=== PATIENT | female | born 1960 | race Caucasian/White ===

== ENCOUNTER 2018-01-01 23:03 | Inpatient (IN) | payer BC ==
[2018-01-01 23:51] LABS: Absolute Lymphocytes (CBC) 1.1 K/uL (0.7-4.9); Absolute Monocytes 0.7 K/uL (0.1-1.3); Absolute Neutrophil 8.2 K/uL (1.8-8.0); Basophils % 0.7 % (0-1.3); Eosinophils % 0.4 % (0-4.4); Hematocrit 43.1 % (36.0-45.0); MCH 27.6 pg (27.0-35.0); MCV 83.1 fL (80-100); MPV 9.1 fL (7.6-11.3); Monocytes % 7.3 % (3.3-12.3); RBC Red Blood Cell Count 5.19 M/uL (3.86-4.86)
[2018-01-01 23:57] LABS: Bicarbonate 24 mEq/L (21-31); Glucose Level 143 mg/dL (65-120); Lipase 14 U/L (22-51); Potassium 4.4 mEq/L (3.6-5.0); Sodium Level 135 mEq/L (135-145)
[2018-01-02] MEDS ORDERED: ONDANSETRON 4 MG/2 ML VIAL ONE (00:02)
[2018-01-02] MEDS ORDERED: MORPHINE 10 MG/ML VIAL ONE (00:02)
[2018-01-02] MEDS ORDERED: NA CHLORIDE 0.9% 1,000 ML ONE ×2 (00:02→02:59)
[2018-01-02 00:04] LABS: ALT/SGPT 25 IU/L (10-60); AST/SGOT 26 IU/L (10-42); Albumin 4.3 g/dL (3.2-5.5); Alkaline Phosphatase 99 IU/L (42-121); BUN Blood Urea Nitrogen 24 mg/dL (6-20); Bilirubin Direct 0.2 mg/dL (0-0.2); Bilirubin Total 0.8 mg/dL (0.3-1.2); Glomerular Filtration Rate > 90 mL/min (=/>90); Protein, Total 7.7 g/dL (6.0-8.3)
--- NOTE | 2018-01-02 01:57 | ER ---
Nurse's Notes [facility] Name: Svetlana Orozco Age: 57 yrs Sex: Female : 1960 Arrival Date: 01/01/2018 Time: 23:04 Bed 18 Private MD: Diagnosis: Other intestinal obstruction-Small bowel obstruction Presentation: 01/01 23:49 Presenting complaint: EMS states: I DRANK AT THE [place] LAST NIGHT AND I THINK I'VE bp GOT DIVERTICULITIS. Transition of care: patient was not received from another setting of care. Onset of symptoms was January 01, 2018 at 12:00. Care prior to arrival: None. 23:49 Method Of Arrival: Ambulatory bp 23:49 Acuity: BHARAT 3 bp Triage Assessment: 23:50 General: Appears distressed, uncomfortable, obese, Behavior is cooperative, appropriate bp for age, agitated, anxious. Pain: Complains of pain in abdomen Pain currently is 10 out of 10 on a pain scale. EENT: No deficits noted. Neuro: Level of Consciousness is awake, alert, obeys commands, Oriented to person, place, time, situation, Appropriate for age. Cardiovascular: No deficits noted. Respiratory: Airway is patent Respiratory effort is even, unlabored, Respiratory pattern is regular, symmetrical. GI: Abdomen is obese, Abd is soft X 4 quads Abdomen is tender to palpation X 4 quads. : No signs and/or symptoms were reported regarding the genitourinary system. Derm: No deficits noted. Musculoskeletal: Circulation, motion, and sensation intact. Range of motion: intact in all extremities. Historical: - Allergies: 23:50 No Known Allergies; bp - Home Meds: 23:50 Lisinopril Oral [Active]; Detrol Oral [Active]; bp - PMHx: 23:50 Hypertension; bp - PSHx: 23:50 Gastric Bypass; bp - Immunization history:: Adult Immunizations up to date. - Social history:: Smoking status: Patient/guardian denies using tobacco. Screenin:53 Abuse screen: Denies threats or abuse. Denies injuries from another. Nutritional bp screening: No deficits noted. Tuberculosis screening: No symptoms or risk factors identified. Fall Risk None identified. Assessment: 23:53 General: SEE TRIAGE NOTE. bp 01/02 00:00 GI: Bowel sounds present X 4 quads. bp 00:25 Reassessment: PT TO CT WITH DEAL ARCHITECT. bp 00:50 Reassessment: PT RETURNED FROM CT, RESULTS PENDING. bp 02:02 Reassessment: PER PROVIDER, PT HAS CLOSED LOOP SBO, C/S AND ADMIT PENDING. NGT DEFERRED bp BY SURGERY C/S DUE TO H/O GASTRIC BYPASS. 02:24 Reassessment: ADMIT IN PROCESS. BED ASSIGNED, AWAITING ADMIT MD ORDERS. bp 03:45 Reassessment: PT CRISTIANO WITH DANIELLA LINO. bp Vital Signs: 01/01 23:50 BP 175 / 95; Pulse 81; Resp 24; Temp 97.6; Pulse Ox 97% ; Weight 158.76 kg (R); bp 01/02 00:23 BP 158 / 80; Pulse 79; Resp 18; Pulse Ox 93% on R/A; bp 02:03 BP 149 / 82; Pulse 77; Resp 16; Pulse Ox 100% ; bp 03:45 BP 136 / 78; Pulse 75; Resp 16; Pulse Ox 97% ; bp ED Course: 01/01 23:04 Patient arrived in ED. ds1 23:19 Chaparro Ley NP is PHCP. pm1 23:19 Tung Villalobos MD is Attending Physician. pm1 23:27 Kwaku Duran, ZOIE is Primary Nurse. bp 23:49 Triage completed. bp 23:50 Arm band placed on. bp 23:53 Patient has correct armband on for positive identification. Bed in low position. Call bp light in reach. Side rails up X2. Adult w/ patient. 23:53 Inserted saline lock: 22 gauge in right antecubital area, using aseptic technique. bp Blood collected. 01/02 01:50 Luis Jovel MD is Hospitalizing Provider. pm1 02:04 No provider procedures requiring assistance completed. Patient admitted, IV remains in bp place. 02:05 Lipase Sent. bp 02:05 Hepatic Function Sent. bp 02:05 CBC with Diff Sent. bp 02:05 Basic Metabolic Panel Sent. bp Administered Medications: 01/01 23:50 Drug: NS 0.9% 1000 ml Route: IV; Rate: 1000 ml; Site: right antecubital; bp 01/02 02:05 Follow up: IV Status: Completed infusion bp 01/01 23:50 Drug: morphine 4 mg Route: IVP; Site: right antecubital; bp 01/02 00:25 Follow up: Response: Pain is decreased bp 01/01 23:50 Drug: Zofran 4 mg Route: IVP; Site: right antecubital; bp 01/02 00:24 Follow up: Response: Pain is decreased bp 02:22 Drug: NS 0.9% 1000 ml Route: IV; Rate: 100 ml/hr; Site: right antecubital; bp 02:22 Follow up: IV Status: Infusion continued upon admission bp Outcome: 01:57 Decision to Hospitalize by Provider. pm1 03:46 Admitted to Med/surg accompanied by nurse, via stretcher, with chart. bp 03:46 Condition: stable 03:46 Instructed on the need for admit. 03:47 Patient left the ED. bp Signatures: Shelly Ramey ds1 Chaparro Ley, SPECIAL EVENTS COORDINATOR SPECIAL EVENTS COORDINATOR pm1 Kwaku Duran, RN RN bp
--- NOTE | 2018-01-02 01:58 | EDPHYS ---
Physician Documentation [facility] Name: Svetlana Orozco Age: 57 yrs Sex: Female : 1960 Arrival Date: 01/01/2018 Time: 23:04 Bed 18 Private MD: ED Physician Tung Villalobos HPI: 01/02 00:30 This 57 yrs old Female presents to ER via Ambulatory with complaints of pm1 Abdominal Pain. 00:30 The patient presents with abdominal pain in the epigastric area. Onset: The pm1 symptoms/episode began/occurred today. The symptoms do not radiate. Associated signs and symptoms: Pertinent positives: nausea and vomiting, Pertinent negatives: chest pain, diarrhea, dysuria, fever, headache, shortness of breath. The symptoms are described as crampy, sharp. Modifying factors: The symptoms are alleviated by nothing, the symptoms are aggravated by food. Severity of pain: in the emergency department the pain is actually worse. The patient has not experienced similar symptoms in the past. Patient with history of gastric bypass 18 years ago in [place]. Patient with vomiting after eating and drinking. Patient reports normal bowel movement this AM. Historical: - Allergies: 01/01 23:50 No Known Allergies; bp - Home Meds: 23:50 Lisinopril Oral [Active]; Detrol Oral [Active]; bp - PMHx: 23:50 Hypertension; bp - PSHx: 23:50 Gastric Bypass; bp - Immunization history:: Adult Immunizations up to date. - Social history:: Smoking status: Patient/guardian denies using tobacco. ROS: 01/02 00:30 Constitutional: Negative for fever, chills, and weight loss, Eyes: Negative for injury, pm1 pain, redness, and discharge, ENT: Negative for injury, pain, and discharge, Neck: Negative for injury, pain, and swelling, Cardiovascular: Negative for chest pain, palpitations, and edema, Respiratory: Negative for shortness of breath, cough, wheezing, and pleuritic chest pain. Back: Negative for injury and pain, : Negative for injury, bleeding, discharge, and swelling, MS/Extremity: Negative for injury and deformity, Skin: Negative for injury, rash, and discoloration, Neuro: Negative for headache, weakness, numbness, tingling, and seizure. Abdomen/GI: Positive for abdominal pain, nausea and vomiting, of the epigastric area, Negative for diarrhea, hematemesis. Exam: 00:30 Constitutional: This is a well developed, well nourished patient who is awake, alert, pm1 and in no acute distress. Head/Face: Normocephalic, atraumatic. Eyes: Pupils equal round and reactive to light, extra-ocular motions intact. Lids and lashes normal. Conjunctiva and sclera are non-icteric and not injected. Cornea within normal limits. Periorbital areas with no swelling, redness, or edema. ENT: Nares patent. No nasal discharge, no septal abnormalities noted. Tympanic membranes are normal and external auditory canals are clear. Oropharynx with no redness, swelling, or masses, exudates, or evidence of obstruction, uvula midline. Mucous membranes moist. Neck: Trachea midline, no thyromegaly or masses palpated, and no cervical lymphadenopathy. Supple, full range of motion without nuchal rigidity, or vertebral point tenderness. No Meningismus. Chest/axilla: Normal chest wall appearance and motion. Nontender with no deformity. No lesions are appreciated. Cardiovascular: Regular rate and rhythm with a normal S1 and S2. No gallops, murmurs, or rubs. No pulse deficits. Respiratory: Lungs have equal breath sounds bilaterally, clear to auscultation and percussion. No rales, rhonchi or wheezes noted. No increased work of breathing, no retractions or nasal flaring. 00:30 Back: No spinal tenderness. No costovertebral tenderness. Full range of motion. Skin: Warm, dry with normal turgor. Normal color with no rashes, no lesions, and no evidence of cellulitis. MS/ Extremity: Pulses equal, no cyanosis. Neurovascular intact. Full, normal range of motion. 00:30 Abdomen/GI: Inspection: obese Bowel sounds: normal, Palpation: soft, moderate abdominal tenderness, in the epigastric area, mass, is not appreciated, rebound tenderness, is not appreciated. 00:30 Neuro: Orientation: is normal, Motor: is normal, moves all fours, Sensation: is normal, no obvious gross deficits. Vital Signs: 01/01 23:50 BP 175 / 95; Pulse 81; Resp 24; Temp 97.6; Pulse Ox 97% ; Weight 158.76 kg (R); bp 01/02 00:23 BP 158 / 80; Pulse 79; Resp 18; Pulse Ox 93% on R/A; bp 02:03 BP 149 / 82; Pulse 77; Resp 16; Pulse Ox 100% ; bp 03:45 BP 136 / 78; Pulse 75; Resp 16; Pulse Ox 97% ; bp MDM: 01/01 23:20 Patient medically screened. pm1 01/02 01:48 Data reviewed: vital signs. Data interpreted: Pulse oximetry: on room air is 97 %. pm1 Interpretation: normal. Counseling: I had a detailed discussion with the patient and/or guardian regarding: the historical points, exam findings, and any diagnostic results supporting the discharge/admit diagnosis, lab results, radiology results, the need for further work-up and treatment in the hospital. 01:50 Physician consultation: Gulshan Rome MD was contacted at 01:40, regarding consult, pm1 patient's condition, and will see patient tomorrow. 02:19 ED course: Patient just recalled that she had Dr. Schroeder as a general surgeon in the pm1 past for a wound debridement and would like to have him as her surgeon if possible. Informed the patient that he is not caponizer but will attempt to contact him. Informed the patient that I have already discussed the case with Dr. Rome and he is willing to see her tomorrow morning. I left message for Dr. Schroeder. Patient is fine with either surgeon treating her. 02:46 Physician consultation: Luis Jovel MD was contacted at 02:48, regarding admission, pm1 patient's condition, and will see patient. ED course: No call back from Dr. Schroeder. Dr. Jovel discussed case with Dr. Rome and he will evaluate the patient in the morning.. 01/01 23:35 Order name: Basic Metabolic Panel pm1 01/01 23:35 Order name: CBC with Diff pm1 01/01 23:35 Order name: Hepatic Function pm1 01/01 23:35 Order name: Lipase pm1 01/01 23:58 Order name: Basic Metabolic Panel; Complete Time: 00:16 EDMS 01/01 23:58 Order name: Lipase; Complete Time: 00:16 EDMS 01/01 23:35 Order name: CT Abd/Pelvis - W/Contrast: IV contrast only pm1 01/02 00:04 Order name: Liver (Hepatic) Function; Complete Time: 00:16 EDMS 01/02 00:17 Order name: CBC with Automated Diff; Complete Time: 00:33 EDMS 01/02 02:46 Order name: Urine --Ancillary (enter results) rg2 01/01 23:35 Order name: Urine Test (obtain specimen); Complete Time: 02:37 pm1 01/01 23:35 Order name: IV Saline Lock; Complete Time: 23:38 pm1 01/01 23:35 Order name: Labs collected and sent; Complete Time: 23:48 pm1 01/01 23:35 Order name: Urine Dipstick-Ancillary (obtain specimen); Complete Time: 02:37 pm1 01/02 02:14 Order name: NPO; Complete Time: 02:22 pm1 Administered Medications: 01/01 23:50 Drug: NS 0.9% 1000 ml Route: IV; Rate: 1000 ml; Site: right antecubital; bp 01/02 02:05 Follow up: IV Status: Completed infusion bp 01/01 23:50 Drug: morphine 4 mg Route: IVP; Site: right antecubital; bp 01/02 00:25 Follow up: Response: Pain is decreased bp 01/01 23:50 Drug: Zofran 4 mg Route: IVP; Site: right antecubital; bp 01/02 00:24 Follow up: Response: Pain is decreased bp 02:22 Drug: NS 0.9% 1000 ml Route: IV; Rate: 100 ml/hr; Site: right antecubital; bp 02:22 Follow up: IV Status: Infusion continued upon admission bp Disposition: 01/02/18 01:57 Hospitalization ordered by Luis Jovel for Inpatient Admission. Preliminary diagnosis is Other intestinal obstruction - Small bowel obstruction. - Bed requested for Telemetry/MedSurg (Inpatient). - Status is Inpatient Admission. bp - Condition is Stable. - Problem is new. - Symptoms have improved. UTI on Admission? No Addendum: 01/06/2018 06:23 Co-signature as Attending Physician, Tung Villalobos MD. g s Signatures: Dispatcher [employer] EDMS Svetlana Tejada RN RN bb Chaparro Ley, INTERPRETATIVE DANCER INTERPRETATIVE DANCER pm1 Tung Villalobos MD MD Kwaku Duran RN RN bp
[2018-01-02] MEDS: NA CHLORIDE 0.9% 1,000 ML IV SCH ×3 (03:00→19:51)
[2018-01-02 03:50] LABS: Urine Specific Gravity 1.015 (1.005-1.030)
[2018-01-02] MEDS: MORPHINE 4 MG/ML SYR IV PRN ×4 (04:17→19:52)
[2018-01-02] MEDS: Levofloxacin500mg IV 500 MG/100 ML BAG IV SCH (04:17)
[2018-01-02] MEDS: ONDANSETRON 4 MG/2 ML VIAL IV PRN ×4 (04:21→19:52)
--- NOTE | 2018-01-02 07:44 | P.HP ---
Certification for Inpatient Patient admitted to: Inpatient With expected LOS: >2 Midnights Patient will require the following post-hospital care: None Practitioner: I am a practitioner with admitting privileges, knowledge of patient current condition, hospital course, and medical plan of care. Services: Services provided to patient in accordance with Admission requirements found in Title 42 Section 412.3 of the Code of Federal Regulations Patient History Date of Service: 01/02/18 Reason for admission: Small-bowel obstruction History of Present Illness: Patient is a 57-year-old female with a history of a gastric bypass surgery. This was done 18 years ago. I am not sure exactly how the bypass was performed but we will try to get records. Patient was doing well up until this evening when she steadily started having abdominal pain. She had an intractable nausea and vomiting. She has not had any flatus since that time. CT scan per ER physician were showed a significant small-bowel obstruction. At this time patient be admitted to the hospital with surgical consultation. I did speak with General surgery and they will assess the patient in the morning. Allergies No Known Allergies Allergy (Verified 07/21/17 13:13) Home Medications: Fan Cit/D3/K/Mag Ox/Stron/Bor [Theracal Rapid Repletion Tab] 1 cap PO DAILY Cyanocobalamin [Vitamin B-12*] 1,000 mg IM DIRECTED 01/02/18 Lisinopril/Hydrochlorothiazide [Lisinopril-Hctz 10-12.5 mg Tab] 20 mg PO DAILY 01/02/18 Oxybutynin Chloride [Ditropan*] 5 mg PO BID 01/02/18 - Past Medical/Surgical History Has patient received pneumonia vaccine in the past: Yes Diabetic: No -: Hypertension -: Obesity -: Total knee replavement-bilateral -: Gastric bypass sx -: Dedridement on rt lag -: neck surgery - Family History Father Medical History: Heart disease, Lung disease, GI disease, Diabetes, Kidney disease Mother Medical History: GI disease, Other (see notes) Notes: Hernia - Social History Smoking Status: Former smoker Alcohol use: Yes CD- Drugs: No Caffeine use: Yes Place of Residence: Home Review of Systems 10-point ROS is otherwise unremarkable Physical Examination - Vital Signs Temperature: 98.4 F Blood Pressure: 145/83 Pulse: 81 Respirations: 20 Pulse Ox (%): 96 - Physical Exam General: Alert, In no apparent distress, Oriented x3 HEENT: Atraumatic, PERRLA, Mucous membr. moist/pink, EOMI, Sclerae nonicteric Neck: Supple, 2+ carotid pulse no bruit, No LAD, Without JVD or thyroid abnormality Respiratory: Clear to auscultation bilaterally, Normal air movement Cardiovascular: Regular rate/rhythm, Normal S1 S2, No murmurs Gastrointestinal: Normal bowel sounds, Soft and benign, Non-distended, No tenderness Musculoskeletal: No clubbing, No swelling, No tenderness Integumentary: No rashes Neurological: Normal gait, Normal speech, Normal strength at 5/5 x4 extr, Normal tone, Sensation intact, Cranial nerves 3-12 intact, Normal affect Lymphatics: No axilla or inguinal lymphadenopathy - Studies Laboratory Data (last 24 hrs) 01/01/18 23:40: WBC 10.1, Hgb 14.3, Hct 43.1, Plt Count 262 01/01/18 23:40: Sodium 135, Potassium 4.4, BUN 24 H, Creatinine 0.63, Glucose 143 H, Total Bilirubin 0.8, AST 26, ALT 25, Alkaline Phosphatase 99, Lipase 14 L Assessment & Plan - Problems (Diagnosis) (1) Small bowel obstruction Current Visit: Yes Status: Acute (2) History of gastric bypass Current Visit: Yes Status: Acute (3) Morbid obesity Current Visit: Yes Status: Acute (4) Hypertension Current Visit: Yes Status: Acute (5) Intractable nausea and vomiting Current Visit: Yes Status: Acute - Plan Plan: 1. IV hydration 2. Pain control 3. General surgery consultation 4. IV antibiotics 5. Monitor labs and electrolytes closely 6. GI and DVT prophylaxis Discharge Plan: Home - Advance Directives Does patient have a Living Will: No Does patient have a Durable POA for Healthcare: No - Code Status/Comfort Care Code Status Assessed: Yes Code Status: Full Code Critical Care: No Time Spent Managing PTS Care (In Minutes): 50
--- NOTE | 2018-01-02 08:26 | RAD REPORT ---
EXAM DESCRIPTION: CTAbdomen Pelvis W Contrast - 01/02/2018 12:49 am CLINICAL HISTORY: Abdominal pain. COMPARISON: None. TECHNIQUE: Biphasic CT imaging of the abdomen and pelvis was performed with 100 ml non-ionic IV cont rast. All CT scans are performed using dose optimization technique as appropriate and may include automated exposure control or mA/KV adjustment according to patient size. FINDINGS: The lung bases are clear.Postsurgical changes are present the gastroesophageal junction. The liver contains a 10 mm low-density lesion in the right lobe superiorly, likely a cyst. No aggress lisa liver lesion or biliary dilatation. The spleen, pancreas, adrenal glands and kidneys are within n ormal limits. Multiple dilated loops of small intestine are present in the central abdomen. Postsurgical clips are present in the region. No free intraperitoneal air, free fluid or localized abscess. The appendix is normal. No evidence of significant lymphadenopathy. No suspicious bony findings. IMPRESSION: Moderate to severe mechanical small bowel obstruction is present. The configuration of t he obstructed loops raises suspicion for a closed loop obstruction.
[2018-01-02] MEDS: METRONIDAZOLE 500mg IVPB 500 MG/100 ML BAG IV SCH ×2 (09:00→17:13)
--- NOTE | 2018-01-02 09:15 | RAD REPORT ---
EXAM DESCRIPTION: RAD - Abdomen W Erect - 01/02/2018 8:49 am CLINICAL HISTORY: Small bowel obstruction COMPARISON: Recent CT study. FINDINGS: Significant distention of central abdominal bowel loops is present compatible with a moder ate to severe mechanical small bowel obstruction. Surgical clips are present in the mid abdomen. Contrast is present in the urinary bladder. No pneumoperitoneum seen. IMPRESSION: [id number] mechanical small-bowel obstruction in the central mid abdomen.
--- NOTE | 2018-01-02 20:58 | CON ---
Date of Consultation: 01/02/2018 Diagnosis: bowel obstruction. History Of Present Illness: This is the case of a 57-year-old patient, morbidly obese with a history of gastric bypass about 18 years ago. She said that yesterday at 6 o'clock in the afternoon, she basilio s had a with some other meal and then she had felt nauseous 2 hours later. Since she was not improving, she decided to come this morning to the ER, found to have a possible bowel obstruction and the patient was admitted to the hospital with the medical service. She does not remember any me yuliet problems. She is saying that last August, which was about 4 months ago, she had an upper endos copy and colonoscopy done by Dr. Hawthorne, and she stated that was with no major finding. Before that , she had some other meal that she was starting to get already sick, although she gillette s not remember the details of it. The patient denies any dysuria, hematuria, hematochezia, or melena . Denies any recent traveling out of the country. Denies any family member sick at home. Review of Systems: Constitutional: Denies any fever, any chills. Gastrointestinal: The patient states some nausea and vomiting, although she states she feels a lot better than yesterday. No melena and no hematochezia. Respiratory: Denies any shortness of breath. Genitourinary: Denies any dysuria, hematuria. Physical Examination: General: The patient is awake and alert. HEENT: Pupils are equal and reactive, anicteric. Neck: Supple. Chest: Bilateral breath sounds. Abdomen: Softly distended. Epigastric tenderness. No guarding or rebound. Extremities: Good capillary refill. Rectal: Deferred. Breast: Deferred. Pelvic: Deferred. Laboratory Data: Blood work shows WBC count of 10.1 with hemoglobin of 14.3 and platelets of 262. P otassium is 4.0. Creatinine is 0.63. Sodium is 135, chloride is 199 , creatinine 0.63. Imaging: CAT scan of abdomen and pelvis interpreted by Dr. Grullon as bowel obstruction present, judgin g by multiple dilated loops and small bowel in the central abdomen. Many surgical clips are availabl e in that area. No lymphadenopathy. No pneumatosis. Assessment: A 57-year-old patient, who developed nausea and vomiting after eating. The patient feel s a lot better right now. She is passing flatus. She has a gastric bypass. It was Marla-en-Y, altho ugh it was done about 18 years ago. She is able to gain some weight back. She has not been examined for a long time other than the GI endoscopies done recently. At this moment, we see some dilated lo ops, hard to differentiate in that scan due to the history of gastric bypass. She has no peritonitis . Abdomen has no rebound tenderness. Plan: So, we going to keep her on bowel rest, IV hydration. We are going to obtain a small bowel se yris to confirm the diagnosis if she had bowel obstructions since she was explained the options of la parotomy, possible bowel resection, possible ostomy with benefits and risk, including but not limited to, infection, bleeding, damage to adjacent structures, anesthesia complication, recurrence, OR, and even . She also understands this may not relieve any symptoms. She might need more than one s urgical intervention. Obviously, she preferred to try the conservative treatment first as long as cl inically she is stable in this case. There is no pneumoperitoneum. No peritonitis at this time. So , we are going to try to continue this for the next 24 hours and then do the x-ray since the patient just had a CAT scan done recently. GRETA Voice ID: [id number] Report ID: [id number]
[2018-01-03] MEDS: METRONIDAZOLE 500mg IVPB 500 MG/100 ML BAG IV SCH ×3 (00:58→18:05)
[2018-01-03] MEDS: ONDANSETRON 4 MG/2 ML VIAL IV PRN ×2 (01:11→10:18)
[2018-01-03] MEDS: MORPHINE 4 MG/ML SYR IV PRN (01:11)
[2018-01-03] MEDS: Levofloxacin500mg IV 500 MG/100 ML BAG IV SCH (03:41)
[2018-01-03] MEDS ORDERED: SODIUM CHLORIDE 0.9% 10ML INJ IV PRN (07:00)
[2018-01-03] MEDS ORDERED: HYDRALAZINE HCL 20 MG/ML VIAL IV PRN (07:00)
[2018-01-03 08:05] LABS: BUN Blood Urea Nitrogen 10 mg/dL (6-20); Bicarbonate 27 mEq/L (21-31); Glomerular Filtration Rate > 90 mL/min (=/>90); Glucose Level 137 mg/dL (65-120); Magnesium 1.7 mg/dL (1.8-2.5); Potassium 4.3 mEq/L (3.6-5.0); Sodium Level 131 mEq/L (135-145)
[2018-01-03 08:07] LABS: Absolute Lymphocytes (CBC) 0.8 K/uL (0.7-4.9); Absolute Monocytes 0.6 K/uL (0.1-1.3); Absolute Neutrophil 7.8 K/uL (1.8-8.0); Basophils % 0.1 % (0-1.3); Eosinophils % 0.3 % (0-4.4); Hematocrit 41.2 % (36.0-45.0); Lymphocytes % 8.4 % (15.3-44.8); MCH 27.7 pg (27.0-35.0); MCV 83.4 fL (80-100); MPV 9.3 fL (7.6-11.3); Monocytes % 6.4 % (3.3-12.3); RBC Red Blood Cell Count 4.94 M/uL (3.86-4.86)
--- NOTE | 2018-01-03 09:32 | RAD REPORT ---
EXAM DESCRIPTION: RAD - Abdomen 1 View (KUB) - 01/03/2018 9:21 am CLINICAL HISTORY: Small bowel obstruction COMPARISON: KUB January 02, CT study January 02 FINDINGS: Multiple dilated proximal small bowel loops are again noted. No free air or pneumatosis basilio ve developed. No clear improvement in this small bowel obstruction pattern since prior imaging. Colon remains mostly decompressed. There is a small amount of air scattered in the nondilated colon. No sloan spicious calcifications. IMPRESSION: No measurable improvement in the proximal small bowel obstruction pattern. No free air or pneumatosis have developed.
[2018-01-03] MEDS: PANTOPRAZOLE 40 MG INJ IVP SCH (10:12)
[2018-01-03] MEDS: NA CHLORIDE 0.9% 1,000 ML IV SCH ×2 (10:12→18:06)
[2018-01-03] MEDS ORDERED: MAGNESIUM SULFATE 1 gm IVPB 1 GM/100 ML BAG IV ONE (12:17)
--- NOTE | 2018-01-03 16:21 | P.PN ---
Subjective Date of Service: 01/03/18 Chief Complaint: Small-bowel obstruction Subjective: Other (Slight improvement in pain. No significant nausea or vomiting noted.) Physical Examination - Vital Signs Temperature: 98.6 F Blood Pressure: 114/70 Pulse: 85 Respirations: 18 Pulse Ox (%): 18 - Physical Exam General: Alert, In no apparent distress, Oriented x3, Cooperative HEENT: Atraumatic Neck: Supple Respiratory: Clear to auscultation bilaterally, Normal air movement Cardiovascular: Normal pulses, Regular rate/rhythm Gastrointestinal: Hypoactive, Non-distended, No masses, No rebound, No guarding , Tenderness (acid tender to the abdomen.) Musculoskeletal: No erythema, No tenderness, No warmth Integumentary: No tenderness/swelling, No erythema, No warmth, No cyanosis Neurological: Normal speech, Normal strength at 5/5 x4 extr, Normal tone, Normal affect Lymphatics: No axilla or inguinal lymphadenopathy - Studies Medications List Reviewed: Yes Assessment & Plan - Problems (Diagnosis) (1) History of gastric bypass Onset Date: 01/02/18 Current Visit: Yes Status: Chronic Plan: Patient with history of gastric bypass. X-ray shows no significant change in small bowel obstruction. Will discuss with surgery. Will need to consider NG tube (2) Hypertension Onset Date: 01/02/18 Current Visit: Yes Status: Chronic Plan: Medication will be provided as needed. Qualifiers: Hypertension type: essential hypertension Qualified Code(s): I10 - Essential (primary) hypertension (3) Intractable nausea and vomiting Onset Date: 01/02/18 Current Visit: Yes Status: Acute Plan: Will continue monitor closely. Will discuss with surgery. Qualifiers: Vomiting type: unspecified Qualified Code(s): R11.2 - Nausea with vomiting , unspecified (4) Morbid obesity Onset Date: 01/02/18 Current Visit: Yes Status: Chronic Plan: Patient with history of gastric bypass. Will continue above plan of care. (5) Small bowel obstruction Onset Date: 01/02/18 Current Visit: Yes Status: Acute Plan: Small-bowel obstruction noted. X-ray shows no improvement. Will discuss with surgery. Patient may require intervention. Discharge Plan: Home Plan to discharge in: Greater than 2 days Time Spent Managing Pts Care (In Minutes): 55
[2018-01-03] MEDS: ENOXAPARIN 40 MG/0.4 ML SQ SCH (18:05)
[2018-01-03] MEDS: ACETAMINOPHEN 500 MG TAB PO PRN (20:13)
[2018-01-03 21:18] LABS: Urine Appearance CLEAR; Urine Blood TRACE (NEG); Urine Color DK YELLOW; Urine Glucose NEGATIVE (NEG); Urine Protein NEGATIVE (NEG); Urine Specific Gravity 1.025 (1.005-1.030); Urine pH 5.5 (5.0-7.0)
[2018-01-03 21:28] LABS: Urine Bilirubin NEGATIVE (NEG); Urine Microscopic Reflex ORDER UMIC
[2018-01-03 22:33] LABS: Absolute Lymphocytes (CBC) 0.7 K/uL (0.7-4.9); Absolute Monocytes 0.6 K/uL (0.1-1.3); Absolute Neutrophil 7.4 K/uL (1.8-8.0); Basophils % 0.3 % (0-1.3); Eosinophils % 0.2 % (0-4.4); MCH 27.8 pg (27.0-35.0); MCV 82.9 fL (80-100); MPV 9.1 fL (7.6-11.3); Monocytes % 6.6 % (3.3-12.3)
[2018-01-03 22:43] LABS: Urine Bacteria 20-50 /HPF (<20); Urine Culture Reflex Order REFLEXED; Urine Mucus 2+ /HPF (NONE SEEN); Urine RBC <5 /HPF (NONE SEEN)
[2018-01-03 22:53] LABS: ALT/SGPT 21 IU/L (10-60); AST/SGOT 21 IU/L (10-42); Albumin 3.3 g/dL (3.2-5.5); Alkaline Phosphatase 86 IU/L (42-121); BUN Blood Urea Nitrogen 8 mg/dL (6-20); Bicarbonate 26 mEq/L (21-31); Bilirubin Total 1.3 mg/dL (0.3-1.2); Glomerular Filtration Rate > 90 mL/min (=/>90); Glucose Level 120 mg/dL (65-120); Potassium 3.3 mEq/L (3.6-5.0); Protein, Total 6.6 g/dL (6.0-8.3); Sodium Level 131 mEq/L (135-145)
[2018-01-04] MEDS: METRONIDAZOLE 500mg IVPB 500 MG/100 ML BAG IV SCH ×3 (00:52→18:20)
[2018-01-04 04:16] LABS: Absolute Lymphocytes (CBC) 0.6 K/uL (0.7-4.9); Absolute Monocytes 0.6 K/uL (0.1-1.3); Absolute Neutrophil 7.4 K/uL (1.8-8.0); Basophils % 0.4 % (0-1.3); Eosinophils % 0.5 % (0-4.4); Hematocrit 39.4 % (36.0-45.0); MCV 83.5 fL (80-100); MPV 9.1 fL (7.6-11.3); Monocytes % 6.8 % (3.3-12.3); RBC Red Blood Cell Count 4.71 M/uL (3.86-4.86)
[2018-01-04 04:23] LABS: BUN Blood Urea Nitrogen 11 mg/dL (6-20); Bicarbonate 26 mEq/L (21-31); Glomerular Filtration Rate > 90 mL/min (=/>90); Glucose Level 118 mg/dL (65-120); Potassium 3.6 mEq/L (3.6-5.0); Sodium Level 134 mEq/L (135-145)
[2018-01-04] MEDS: Levofloxacin500mg IV 500 MG/100 ML BAG IV SCH (04:24)
[2018-01-04] MEDS: NA CHLORIDE 0.9% 1,000 ML IV SCH ×2 (04:24→15:00)
[2018-01-04 05:15] LABS: Blood Morphology Comment NOT SEEN (NOT SEEN); Platelet Estimate ADEQ; Urine White Blood Cell Casts OK
[2018-01-04] MEDS: ACETAMINOPHEN 500 MG TAB PO PRN (05:25)
[2018-01-04] MEDS ORDERED: KCL 20 MEQ/100 mL IVPB 20 MEQ/100 ML BAG IV SCH (08:00)
[2018-01-04] MEDS: PANTOPRAZOLE 40 MG INJ IVP SCH (08:09)
[2018-01-04] MEDS: ONDANSETRON 4 MG/2 ML VIAL IV PRN ×4 (08:09→21:32)
--- NOTE | 2018-01-04 13:07 | P.PN ---
Subjective Date of Service: 01/04/18 Primary Care Provider: Dr. Sagastume Chief Complaint: Small-bowel obstruction Subjective: Other (Patient still with some nausea. Abdominal pain still present ) Physical Examination - Vital Signs Temperature: 97.7 F Blood Pressure: 155/77 Pulse: 106 Respirations: 20 Pulse Ox (%): 97 - Physical Exam General: Alert, Oriented x3, Cooperative HEENT: Atraumatic Neck: Supple Respiratory: Clear to auscultation bilaterally, Normal air movement Cardiovascular: Normal pulses, Regular rate/rhythm Gastrointestinal: Hypoactive, Non-distended, No masses, No rebound, No guarding , Tenderness (Pain still present to the abdomen. No significant change) Musculoskeletal: No erythema, No tenderness, No warmth Integumentary: No tenderness/swelling, No erythema, No warmth, No cyanosis Neurological: Normal speech, Normal strength at 5/5 x4 extr, Normal tone, Normal affect Lymphatics: No axilla or inguinal lymphadenopathy - Studies Medications List Reviewed: Yes Assessment & Plan - Problems (Diagnosis) (1) History of gastric bypass Onset Date: 01/02/18 Current Visit: Yes Status: Chronic Plan: X-ray showed small bowel obstruction yesterday. Small bowel series pending. Case discussed at length with surgery. If still with small-bowel obstruction near the site of the gastric bypass the patient will need higher level of care transfer. If obstruction is distal then surgery will likely be done here. Await findings. (2) Hypertension Onset Date: 01/02/18 Current Visit: Yes Status: Chronic Plan: Medication will be provided as needed. Qualifiers: Hypertension type: essential hypertension Qualified Code(s): I10 - Essential (primary) hypertension (3) Intractable nausea and vomiting Onset Date: 01/02/18 Current Visit: Yes Status: Acute Plan: Will continue monitor closely. Continue as above Qualifiers: Vomiting type: unspecified Qualified Code(s): R11.2 - Nausea with vomiting , unspecified (4) Morbid obesity Onset Date: 01/02/18 Current Visit: Yes Status: Chronic Plan: Patient with history of gastric bypass. Will continue above plan of care. (5) Small bowel obstruction Onset Date: 01/02/18 Current Visit: Yes Status: Acute Plan: Small-bowel obstruction noted. X-ray reviewed yesterday. Small bowel series x- ray pending for today. Pending results, the patient may require transfer for higher level of care/surgery or surgery here. Case discussed with surgery. Discharge Plan: Home Plan to discharge in: Greater than 2 days Time Spent Managing Pts Care (In Minutes): 55
--- NOTE | 2018-01-04 15:02 | RAD REPORT ---
EXAM DESCRIPTION: RAD - Chest Single View - 01/04/2018 2:57 pm CLINICAL HISTORY: Cough COMPARISON: 07/21/2017 FINDINGS: Portable technique limits examination quality. The lungs are grossly clear. The heart is normal in size. No displaced fractures.Cervical hardware pl ate noted. IMPRESSION: No acute intrathoracic process suspected.
[2018-01-04] MEDS ORDERED: ACETAMINOPHEN 650MG/RECT SUPP PR PRN (16:00)
[2018-01-04] MEDS: ENOXAPARIN 40 MG/0.4 ML SQ SCH (18:20)
--- NOTE | 2018-01-04 20:51 | RAD REPORT ---
EXAM DESCRIPTION: RAD - Small Bowel Series CLINICAL HISTORY: Vomiting COMPARISON: 01/02/2018 CT study FINDINGS: Multiple dilated small bowel loops are present in the central abdomen. The contrast is see n entering these loops, however, over time as delayed as 6 hours and 30 minutes, little to no progres tristan of the contrast through these loops is seen. This is compatible with a high-grade mechanical obs truction. An x-ray will be obtained in the morning to see if any contrast passes has occurred overnig ht. IMPRESSION: A high grade mechanical obstruction of the proximal small bowel is suspected. This lam elates with CT findings on 01/02/2018.
[2018-01-05] MEDS: METRONIDAZOLE 500mg IVPB 500 MG/100 ML BAG IV SCH ×3 (00:10→16:31)
[2018-01-05] MEDS: NA CHLORIDE 0.9% 1,000 ML IV SCH ×3 (00:10→20:48)
[2018-01-05] MEDS: ONDANSETRON 4 MG/2 ML VIAL IV PRN ×2 (01:42→08:22)
[2018-01-05] MEDS: Levofloxacin500mg IV 500 MG/100 ML BAG IV SCH (03:15)
[2018-01-05] MEDS: ACETAMINOPHEN 500 MG TAB PO PRN (04:58)
[2018-01-05 06:12] LABS: Absolute Monocytes 0.6 K/uL (0.1-1.3); Basophils % 0.3 % (0-1.3); Eosinophils % 3.1 % (0-4.4); Hematocrit 36.6 % (36.0-45.0); Lymphocytes % 16.8 % (15.3-44.8); MCH 27.5 pg (27.0-35.0); MCV 84.2 fL (80-100); Monocytes % 10.5 % (3.3-12.3); RBC Red Blood Cell Count 4.35 M/uL (3.86-4.86)
[2018-01-05 06:16] LABS: BUN Blood Urea Nitrogen 11 mg/dL (6-20); Bicarbonate 28 mEq/L (21-31); Glomerular Filtration Rate > 90 mL/min (=/>90); Glucose Level 103 mg/dL (65-120); Magnesium 1.9 mg/dL (1.8-2.5); Potassium 3.6 mEq/L (3.6-5.0); Sodium Level 136 mEq/L (135-145)
--- NOTE | 2018-01-05 08:28 | P.PN ---
Subjective Date of Service: 01/05/18 Primary Care Provider: Dr. Sagastume Chief Complaint: Small-bowel obstruction Subjective: Other (Still with nausea and vomiting. Pain stable at this time. No significant abdominal distention. Reports a mild cough and irritation to the throat likely from nausea) Physical Examination - Vital Signs Temperature: 98 F Blood Pressure: 133/70 Pulse: 86 Respirations: 20 Pulse Ox (%): 95 - Physical Exam General: Alert, In no apparent distress, Oriented x3, Cooperative HEENT: Atraumatic Neck: Supple Respiratory: Clear to auscultation bilaterally, Normal air movement Cardiovascular: Normal pulses, Regular rate/rhythm Gastrointestinal: Hypoactive, Soft and benign, Non-distended, No masses, No rebound, No guarding, Other (Morbid obese, weight 300 lb), Tenderness (Mild tenderness to the epigastric area with deep palpation) Musculoskeletal: No erythema, No tenderness, No warmth Integumentary: No tenderness/swelling, No erythema, No warmth, No cyanosis Neurological: Normal speech, Normal strength at 5/5 x4 extr, Normal tone, Normal affect Lymphatics: No axilla or inguinal lymphadenopathy - Studies Medications List Reviewed: Yes Assessment & Plan - Problems (Diagnosis) (1) History of gastric bypass Onset Date: 01/02/18 Current Visit: Yes Status: Chronic Plan: Patient with history of gastric bypass in 1999. Small bowel series shows high grade small bowel obstruction mechanical to the proximal small bowel. Details discuss with surgery. Surgery recommends that the patient be transferred to a higher level of care for surgery. Patient will need gastric bypass surgeon to deal with this obstruction. Will discuss with nurses to arrange transfer. Patient stable at this time. CBC, BMP stable. Patient weighs 300 lb. (2) Hypertension Onset Date: 01/02/18 Current Visit: Yes Status: Chronic Plan: Blood pressure stable this time. Will provide medication as needed Qualifiers: Hypertension type: essential hypertension Qualified Code(s): I10 - Essential (primary) hypertension (3) Intractable nausea and vomiting Onset Date: 01/02/18 Current Visit: Yes Status: Acute Plan: Will continue monitor closely. Overall stable. Patient still with nausea. Qualifiers: Vomiting type: unspecified Qualified Code(s): R11.2 - Nausea with vomiting , unspecified (4) Morbid obesity Onset Date: 01/02/18 Current Visit: Yes Status: Chronic Plan: Patient with history of gastric bypass. Patient weighs 300 lb. Will continue with above plan of care. (5) Small bowel obstruction Onset Date: 01/02/18 Current Visit: Yes Status: Acute Plan: High-grade mechanical small bowel obstruction noted on small bowel series. No significant change from original CT scan. Surgery recommends transfer to higher level of care for surgical intervention. Gastric bypass surgeon will be needed to address obstruction and intervention. Will arrange for transfer. Patient currently on Levaquin and Flagyl IV. (6) GERD (gastroesophageal reflux disease) Current Visit: Yes Status: Suspected Plan: Will continue with PPI. Qualifiers: Esophagitis presence: esophagitis presence not specified Qualified Code(s) : K21.9 - Gastro-esophageal reflux disease without esophagitis Discharge Plan: Transfer Plan to discharge in: 24 Hours Time Spent Managing Pts Care (In Minutes): 55
[2018-01-05] MEDS ORDERED: KCL 20 MEQ/100 mL IVPB 20 MEQ/100 ML BAG IV SCH (09:00)
[2018-01-05] MEDS: PANTOPRAZOLE 40 MG INJ IVP SCH (09:48)
--- NOTE | 2018-01-05 09:57 | RAD REPORT ---
EXAM DESCRIPTION: RAD - Abdomen 1 View (KUB) - 01/05/2018 8:38 am CLINICAL HISTORY: Small bowel obstruction. COMPARISON: Small bowel series 01/04/2018 FINDINGS: Dilated proximal small bowel again noted with essentially no movement of contrast through the small bowel overnight. This is compatible with high-grade mechanical obstruction involving severa l proximal small bowel loops. Gastric bypass changes are again noted. No finding to suspect pneumoper itoneum.
[2018-01-05] MEDS: PHENOL 1.4% ORAL SPRAY 180ML MM PRN ×5 (11:58→22:24)
--- NOTE | 2018-01-05 14:05 | P.DS ---
Admission Date: 01/02/18 Discharge Date: 01/05/18 Primary Care Provider: Dr. Sagastume Disposition: TRANSFER TO [facility] Discharge Condition: GOOD Reason for Admission: Small-bowel obstruction Consultations: Surgery-Dr. Rome Procedures: CT scan: FINDINGS: The lung bases are clear.Postsurgical changes are present the gastroesophageal junction. The liver contains a 10 mm low-density lesion in the right lobe superiorly, likely a cyst. No aggressive liver lesion or biliary dilatation. The spleen, pancreas, adrenal glands and kidneys are within normal limits. Multiple dilated loops of small intestine are present in the central abdomen. Postsurgical clips are present in the region. No free intraperitoneal air, free fluid or localized abscess. The appendix is normal. No evidence of significant lymphadenopathy. No suspicious bony findings. IMPRESSION: Moderate to severe mechanical small bowel obstruction is present. The configuration of the obstructed loops raises suspicion for a closed loop obstruction. Small bowel series: COMPARISON: 01/02/2018 CT study FINDINGS: Multiple dilated small bowel loops are present in the central abdomen. The contrast is seen entering these loops, however, over time as delayed as 6 hours and 30 minutes, little to no progression of the contrast through these loops is seen. This is compatible with a high-grade mechanical obstruction. An x-ray will be obtained in the morning to see if any contrast passes has occurred overnight. IMPRESSION: A high grade mechanical obstruction of the proximal small bowel is suspected. This correlates with CT findings on 01/02/2018. - Problems (1) History of gastric bypass Onset Date: 01/02/18 Current Visit: Yes Status: Chronic (2) Hypertension Onset Date: 01/02/18 Current Visit: Yes Status: Chronic Qualifiers: Hypertension type: essential hypertension Qualified Code(s): I10 - Essential (primary) hypertension (3) Intractable nausea and vomiting Onset Date: 01/02/18 Current Visit: Yes Status: Acute Qualifiers: Vomiting type: unspecified Qualified Code(s): R11.2 - Nausea with vomiting , unspecified (4) Morbid obesity Onset Date: 01/02/18 Current Visit: Yes Status: Chronic (5) Small bowel obstruction Onset Date: 01/02/18 Current Visit: Yes Status: Acute (6) GERD (gastroesophageal reflux disease) Current Visit: Yes Status: Suspected Qualifiers: Esophagitis presence: esophagitis presence not specified Qualified Code(s) : K21.9 - Gastro-esophageal reflux disease without esophagitis Brief History of Present Illness: 57-year-old female presented emergency room with abdominal pain. Patient with history of gastric bypass in the distant past. Patient also history with hypertension. The patient was evaluated. Initial CT scan shows mechanical small bowel obstruction. The patient was admitted for further evaluation and treatment. Surgery has been consulted. Hospital Course: During the course of her stay blood cultures remain negative. Her white count was within normal range. Lactic acid was normal. Patient's abdominal pain improved but she still had nausea and vomiting. Initial CT scan showed moderate to severe mechanical small bowel obstruction. A subsequent small bowel series showed a high-grade mechanical obstruction to the proximal bowel. Since her condition did not change surgery recommended the patient be sent to a higher level of care to further address. Patient would need gastric bypass surgeon. I was able came in contact with the surgeon. She agreed to take on the patient. The patient will be transferred to [facility] for further evaluation. Patient will likely need intervention. At discharge vital signs remained stable. CBC and BMP remained unremarkable. So far blood cultures negative. Patient with history of hypertension, obesity, and GERD. Patient will continue with medication to help control blood pressure if needed. Patient continues with PPI. Patient currently on Levaquin and Flagyl IV Vital Signs/Physical Exam: Temp Pulse Resp BP Pulse Ox 98 F 86 20 133/70 95 01/05/18 08:28 18 08:28 01/05/18 08:28 01/05/18 08:28 01/05/18 08:28 General: Alert, In no apparent distress, Oriented x3, Cooperative HEENT: Atraumatic, Mucous membr. moist/pink Neck: Supple, No Thyromegaly Respiratory: Clear to auscultation bilaterally, Normal air movement Cardiovascular: Normal pulses, Regular rate/rhythm Gastrointestinal: Hypoactive, Non-distended, No masses, No rebound, No guarding , Tenderness (Less tenderness to the abdomen) Musculoskeletal: No erythema, No tenderness, No warmth Integumentary: No tenderness/swelling, No erythema, No warmth, No cyanosis Neurological: Normal speech, Normal strength at 5/5 x4 extr, Normal tone, Normal affect Laboratory Data at Discharge: WBC 5.8 K/uL (4.3-10.9) D 01/05/18 05:28 Hgb 12.0 g/dL (12.0-15.0) 01/05/18 05:28 Hct 36.6 % (36.0-45.0) 01/05/18 05:28 Plt Count 206 K/uL (152-406) 01/05/18 05:28 Sodium 136 mEq/L (135-145) 01/05/18 05:28 Potassium 3.6 mEq/L (3.6-5.0) 01/05/18 05:28 BUN 11 mg/dL (6-20) 01/05/18 05:28 Creatinine 0.46 mg/dL (0.44-1.00) 01/05/18 05:28 Glucose 103 mg/dL (65-120) 01/05/18 05:28 Magnesium 1.9 mg/dL (1.8-2.5) 01/05/18 05:28 Total Bilirubin 1.3 mg/dL (0.3-1.2) H 01/03/18 22:14 AST 21 IU/L (10-42) 01/03/18 22:14 ALT 21 IU/L (10-60) 01/03/18 22:14 Alkaline Phosphatase 86 IU/L (42-121) 01/03/18 22:14 Lipase 14 U/L (22-51) L 01/01/18 23:40 Home Medications: Fan Cit/D3/K/Mag Ox/Stron/Bor [Theracal Rapid Repletion Tab] 1 cap PO DAILY Cyanocobalamin [Vitamin B-12*] 1,000 mg IM DIRECTED 01/02/18 Lisinopril/Hydrochlorothiazide [Lisinopril-Hctz 10-12.5 mg Tab] 20 mg PO DAILY 01/02/18 Oxybutynin Chloride [Ditropan*] 5 mg PO BID 01/02/18 Patient Discharge Instructions: 1. Patient to be transferred to [facility]. 2. Continue current medications. Diet: NPO Activity: Fall precautions Time spent managing pt's care (in minutes): 55
[2018-01-05] MEDS: ENOXAPARIN 40 MG/0.4 ML SQ SCH (16:31)
--- NOTE | 2018-01-05 21:51 | PN ---
Date of Progress Note: 01/05/2018 Diagnosis: Small bowel obstruction. Subjective: This is a case of a 57-year-old patient with history of bowel obstruction many years ago , comes to us with a small bowel obstruction. Last night, she has small bowel series and after 3 day s of bowel rest and hydration, we find that there is no major progress, so we decide the patient may need surgical intervention. Since she has gastric bypass surgery, we discussed the case with the [facility] doctor. The [facility] decided they will take the patient, so the patient w ill be transferred today. Physical Examination: General: The patient is awake and alert, in no distress. Abdomen: Softly distended. No rebound. No guarding. Extremities: Good capillary refill. Laboratory Data: Blood work shows WBC count of 5.8 with a potassium of 3.6. The small bowel series interpreted by Dr. Grullon as high-grade mechanical obstruction of the proximal small bowel. Assessment: This is a 57-year-old patient with history of gastric bypass [place]-en-y with a proximal s mall bowel obstruction, not responding to conservative treatment as the patient was wishing for. The patient understand the risks and benefit of transfer and she did agree. The patient has no peritoni tis at this time. BETY/BROOKLYNN Voice ID: [id number] Report ID: [id number]
== END 2018-01-05 23:45 | disposition short-term general hospital (02) | DRG 389 ==
LOC: ER 23:03 → ERHOLD 01-02 02:29 → 4TH 01-02 03:30
PROVIDERS: ADMIT Hospitalist; ATTEND Family Medicine
DX: K56.609 Unspecified intestinal obstruction, unspecified as to partial versus complete obstruction (principal); Z68.42 Body mass index [BMI] 45.0-49.9, adult; E66.01 Morbid (severe) obesity due to excess calories; I10 Essential (primary) hypertension; K21.9 Gastro-esophageal reflux disease without esophagitis; Z98.84 Bariatric surgery status
CPT/HCPCS: 36415; 71045; 74018; 74019; 74177; 74250; 80048; 80053; 80076; 81003; 81015; 81025; 83605; 83690; 83735; 85025; 87040; 87070; 87081; 87086; 87088; 87804; 96361; 96374; 96375; 99285; C9113; J1650; J2405; J3475; J7030; Q9967

== ENCOUNTER 2020-09-13 18:17 | Emergency (ER) | payer BC ==
--- OUTSIDE RECORDS SUMMARY | 2020-09-13 18:18 | XMS REPORT | Clinical Summary ---
:1960 [facility] Address [address] [place] [address] Care Team Providers Name Role Phone Unavailable Primary Care Provider Unavailable Allergies Active Allergy Reactions Severity Noted Date Comments Morphine Itching 01/06/2018 Medications Medication Sig Dispensed Refills Start Date End Date Status lisinopril-hydroCHLO Take 1 tablet by 0 Active ROthiazide mouth daily. (PRINZIDE,ZESTORETIC ) 20-12.5 mg per tablet oxybutynin Take 5 mg by mouth 2 0 Active (DITROPAN) 5 MG (two) times daily. tablet valACYclovir Take 500 mg by mouth 0 Active (VALTREX) 500 MG 2 (two) times daily. tablet cyanocobalamin Inject 1,000 mcg 0 Active (VITAMIN B-12) 1,000 intramuscularly every mcg/mL injection 30 (thirty) days. Active Problems Problem Noted Date Bowel obstruction 01/06/2018 Family History Medical History Relation Name Comments Diabetes Brother Cancer Father Diabetes Father Hypertension Father Hypertension Mother Cancer Other grandfather Diabetes Sister Relation Name Status Comments Brother Father Mother Other grandfather Alive Sister Social History Tobacco Use Types Packs/Day Years Used Date Former Smoker Cigarettes Smokeless Tobacco: Former User Q uit: 01/06/2015 Sex Assigned at Date Recorded Not on file Last Filed Vital Signs Not on file Plan of Treatment Health Maintenance Due Date Last Done Comments BREAST CANCER SCREENING 1960 COLON CANCER SCREENING COLONOSCOPY 1960 CERVICAL CANCER SCREENING PAP ONLY (Age 21-65) 1981 LIPID PANEL 2005 INFLUENZA VACCINE (#1) 2020 Results Not on fileafter 09/13/2019 Insurance Payer Benefit Plan / Subscriber ID Effective Dates Phone Addre ss Type Group BLUE BCBS OS [id number] 2016-Prese [phone] [address] PPO CROSS/BLUE POS/PPO/EPO nt 2 [facility] [id number] Advance Directives For more information, please contact: [phone] Code Status Date Activated Date Inactivated Comments Full Code 01/06/2018 4:30 AM 01/19/2018 3:06 AM This code status was determined by: Patient
--- OUTSIDE RECORDS SUMMARY | 2020-09-13 18:19 | XMS REPORT | Continuity of Care Document ---
:1960 Author Organization [facility] t Address [address] [place] [address] Care Team Providers Name Role Phone Lyle FERMIN Attending Clinician Unavailable Lyle FERMIN Admitting Clinician Unavailable Problems Condition Condition Condition Status Onset Resolution Last Treating Co mments Source Name Details Category Date Date Treatment Clinician Date Bowel Bowel Disease Active [facility] obstructio obstructio 01-06 [facility] - n n 00:00: Medical 00 Center Allergies, Adverse Reactions, Alerts Allergy Allergy Status Severity Reaction(s) Onset Inactive Treating Comm ents Source Name Type Date Date Clinician Morphine Propensi [facility] reaction 00 [facility] s Family History Family Member Diagnosis Comments Start Date Stop Date Source Natural brother Diabetes [facility] Natural father Cancer [facility] Natural father Diabetes [facility] Natural father Hypertension [facility] Natural mother Hypertension [facility] Other Cancer [facility] Natural sister Diabetes [facility] Social History Social Habit Start Date Stop Date Quantity Comments Source History of Cigarette Smoker [facility] tobacco use Medical Cent[facility] r Sex Assigned At [facility] Tobacco use and 2018-01-07 2018-01-07 Former user [facility] - exposure 00:00:00 00:00:00 Medical [place] Smoking Status Start Date Stop Date Source Former smoker 2018-01-07 00:00:00 2018-01-07 00:00:[address] [facility] Medications Ordered Filled Start Stop Current Ordering Indication Dosage Frequency Signature Comments Components Source Medication Medication Date Date Medication? Clinician (SIG) Name Name lisinopril- Yes 1{tbl} QD Take [address] hydroCHLORO 4-05 tablet by [place] - thiazide 01:06: mouth Medical (PRINZIDE,Z 15 daily. Center ESTORETIC) 20-12.5 mg per tablet oxybutynin Yes 5mg Q.5D Take [address] (DITROPAN) 4-05 by mouth 2 [place] - 5 MG tablet 01:06: (two) Medic al 15 times Center daily. valACYclovi Yes 500mg Q.5D Take [address] (VALTREX) 4-05 mg by [facility] - 500 MG 01:06: mouth 2 Medical tablet 15 (two) Center times daily. cyanocobala Yes 1000ug Inject [facility] min 4-05 1,000 mcg [facility] - (VITAMIN 01:06: intramuscu Med ical B-12) 1,000 15 larly Center mcg/mL every 30 injection (thirty) days. Procedures This patient has no known procedures. Plan of Care Planned Activity Planned Date Details Comments Source Future Scheduled 2020-06-[address] [facility] Test 00:00:00 (#1) [code = [facility] INFLUENZA VACCINE (#1)] Future Scheduled [address] [facility] Test 00:[facility]:00 (procedure) [code = [facility] 97894986] Future Scheduled [address] [facility] - Test 00:00:00 malignant neoplasm Medical C enter of cervix (procedure) [code = 989075451] Future Scheduled [address] [facility] - Test 00:00:00 malignant neoplasm Medical C enter of breast (procedure) [code = 268893237] Future Scheduled [address] [facility] - Test 00:00:00 malignant neoplasm Medical C enter of colon (procedure) [code = 668242540] Results Test Description Test Time Test Comments Results Result Comments Source FUNGUS CULTURE + SMEAR 2018-02-13 13:27:00 Test Item Value Reference Range Interpretation Comme nts CULTURE (BEAKER) (test code = 1095) No fungus isolated in 28 days FUNGUS SMEAR ([facility]) (test code = 1406) No fungi seen ANAEROBIC [id number] 02:13:00 Test Item Value Reference Range Interpretation Comments CULTURE ([facility]) (test No anaerobes isolated code = 1095) WOUND CULTURE + GRAM [id number] 07:57:00 Test Item Value Reference Range Interpretation Comments CULTURE ([facility]) (test ESCHERICHIA COLI A < 1+ Escherichia code = 1095) coliESBL Positive Amikacin (test code = S 1) Ampicillin + Sulbactam R (test code = 6) Aztreonam (test code = R 32) Cefepime (test code = R 51) Cefoxitin (test code = R 68) Ceftazidime (test code R = 27) Ceftriaxone (test code R = 52) Ertapenem (test code = S 38) Gentamicin (test code S = 18) Levofloxacin (test R code = 22) Meropenem (test code = S 34) Piperacillin + R Tazobactam (test code = 29) Tetracycline (test R code = 2) Tobramycin (test code R = 25) Trimethoprim + R Sulfamethoxazole (test code = 47) GRAM STAIN RESULT 1+ WBCs ([facility]) (test code = 1123) GRAM STAIN RESULT No organisms seen ([facility]) (test code = 937715) 1+ Skin floraPOCT-GLUCOSE [id number] 21:38:00 Test Item Value Reference Range Interpretation Comments POC-GLUCOSE METER 110 mg/dL 70-110 TESTED AT [place] [address] ([facility]) (test code = [place] 1538) [address] POCT-GLUCOSE [id number] 16:31:00 Test Item Value Reference Range Interpretation Comments POC-GLUCOSE METER 145 mg/dL 70-110 H TESTED AT [place] [address] ([facility]) (test code = [place] 1538) [address] POCT-GLUCOSE [id number] 12:12:00 Test Item Value Reference Range Interpretation Comments POC-GLUCOSE METER 99 mg/dL 70-110 TESTED AT [place] [address] ([facility]) (test code = CHERRI Zavaleta [facility] [address]38) POCT-GLUCOSE [id number] 08:22:00 Test Item Value Reference Range Interpretation Comments POC-GLUCOSE METER 101 mg/dL 70-110 TESTED AT [facility] 6720 (BEAKER) (test code = [place] 15[address]) [address] [id number] 06:41:00 Test Item Value Reference Range Interpretation Comments PHOSPHORUS (BEAKER) (test code = 3.6 mg/dL 2.3-4.7 604) [id number] 06:41:00 Test Item Value Reference Range Interpretation Comments MAGNESIUM (BEAKER) (test code = 1.8 mg/dL 1.6-2.6 627) BASIC METABOLIC [id number] 06:41:00 Test Item Value Reference Range Interpretation Comments SODIUM (BEAKER) 132 meq/L 136-145 L (test code = 381) POTASSIUM (BEAKER) 3.8 meq/L 3.5-5.1 (test code = 379) CHLORIDE (BEAKER) 103 meq/L 98-107 (test code = 382) CO2 (BEAKER) (test 21 meq/L 22-29 L code = 355) BLOOD UREA NITROGEN 9 mg/dL 7-21 (BEAKER) (test code = 354) CREATININE (BEAKER) 0.60 mg/dL 0.57-1.25 (test code = 358) GLUCOSE RANDOM 106 mg/dL 70-105 H (BEAKER) (test code = 652) CALCIUM (BEAKER) 8.4 mg/dL 8.4-10.2 (test code = 697) EGFR (BEAKER) (test 103 mL/min/1.73 ESTIM ATED GFR IS code = 1092) sq m NOT ACCURATE CREATININE CLEARANCE IN PREDICTING GLOMERULAR FILTRATION RATE . ESTIMATED GFR I S NOT APPLICABLE FOR DIALYSIS PATIEN TS. CBC (HEMOGRAM ONLY)2018-01-18 05:51:00 Test Item Value Reference Range Interpretation Comments WHITE BLOOD CELL COUNT (BEAKER) 5.0 K/ L 3.5-10.5 (test code = 775) RED BLOOD CELL COUNT (BEAKER) 3.59 M/ L 3.93-5.22 L (test code = 761) HEMOGLOBIN (BEAKER) (test code = 9.7 GM/DL 11.2-15.7 L 410) HEMATOCRIT (BEAKER) (test code = 32.3 % 34.1-44.9 L 411) MEAN CORPUSCULAR VOLUME (BEAKER) 90.0 fL 79.4-94.8 (test code = 753) MEAN CORPUSCULAR HEMOGLOBIN 27.0 pg 25.6-32.2 (AKER) (test code = 751) MEAN CORPUSCULAR HEMOGLOBIN CONC 30.0 GM/DL 32.2-35.5 L ([facility]) (test code = 752) RED CELL DISTRIBUTION WIDTH 16.0 % 11.7-14.4 H ([facility]) (test code = 412) PLATELET COUNT ([facility]) (test 383 K/CU MM 150-450 code = 756) MEAN PLATELET VOLUME ([facility]) 10.0 fL 9.4-12.3 (test code = 754) NUCLEATED RED BLOOD CELLS 0 /100 WBC 0-0 ([facility]) (test code = 413) POCT-GLUCOSE [id number] 21:23:00 Test Item Value Reference Range Interpretation Comments POC-GLUCOSE METER 161 mg/dL 70-110 H TESTED AT [place] [address] ([facility]) (test code = [facility] Zavaleta [facility] 1538) [id number] POCT-GLUCOSE [id number] 16:40:00 Test Item Value Reference Range Interpretation Comments POC-GLUCOSE METER 139 mg/dL 70-110 H TESTED AT [place] [address] ([facility]) (test code = [facility] [place] Meghann [facility] 1538) [address] POCT-GLUCOSE [id number] 12:16:00 Test Item Value Reference Range Interpretation Comments POC-GLUCOSE METER 82 mg/dL 70-110 TESTED AT [place] [address] ([facility]) (test code = [facility] [place] Meghann [facility] [address] 1538) POCT-GLUCOSE [id number] 08:27:00 Test Item Value Reference Range Interpretation Comments POC-GLUCOSE METER 122 mg/dL 70-110 H TESTED AT [place] [address] ([facility]) (test code = [facility] [place] Meghann [facility] 1538) [address] [id number] 06:41:00 Test Item Value Reference Range Interpretation Comments PHOSPHORUS (BEAKER) (test code = 3.5 mg/dL 2.3-4.7 604) [id number] 06:41:00 Test Item Value Reference Range Interpretation Comments [facility] (test code = 2.0 mg/dL 1.6-2.6 627) BASIC METABOLIC [id number] 06:41:00 Test Item Value Reference Range Interpretation Comments SODIUM (BEAKER) 135 meq/L 136-145 L (test code = 381) POTASSIUM (BEAKER) 4.3 meq/L 3.5-5.1 (test code = 379) CHLORIDE (BEAKER) 102 meq/L 98-107 (test code = 382) CO2 (BEAKER) (test 22 meq/L 22-29 code = 355) BLOOD UREA NITROGEN 8 mg/dL 7-21 (BEAKER) (test code = 354) CREATININE (BEAKER) 0.66 mg/dL 0.57-1.25 (test code = 358) GLUCOSE RANDOM 95 mg/dL 70-105 (BEAKER) (test code = 652) CALCIUM (BEAKER) 8.7 mg/dL 8.4-10.2 (test code = 697) EGFR (BEAKER) (test 92 mL/min/1.73 ESTIMA PATTIE GFR IS code = 1092) sq m NOT ACCURATE CREATININE CLEARANCE IN PREDICTING GLOMERULAR FILTRATION RATE . ESTIMATED GFR I S NOT APPLICABLE FOR DIALYSIS PATIEN TS. CBC (HEMOGRAM ONLY)2018-01-17 06:17:00 Test Item Value Reference Range Interpretation Comments WHITE BLOOD CELL COUNT (BEAKER) 6.0 K/ L 3.5-10.5 (test code = 775) RED BLOOD CELL COUNT (BEAKER) 3.73 M/ L 3.93-5.22 L (test code = 761) HEMOGLOBIN (BEAKER) (test code = 10.1 GM/DL 11.2-15.7 L 410) HEMATOCRIT (BEAKER) (test code = 31.8 % 34.1-44.9 L 411) MEAN CORPUSCULAR VOLUME (BEAKER) 85.3 fL 79.4-94.8 (test code = 753) MEAN CORPUSCULAR HEMOGLOBIN 27.1 pg 25.6-32.2 (BEAKER) (test code = 751) MEAN CORPUSCULAR HEMOGLOBIN CONC 31.8 GM/DL 32.2-35.5 L (BEAKER) (test code = 752) RED CELL DISTRIBUTION WIDTH 15.8 % 11.7-14.4 H (BEAKER) (test code = 412) PLATELET COUNT (BEAKER) (test 406 K/CU MM 150-450 code = 756) MEAN PLATELET VOLUME (BEAKER) 10.1 fL 9.4-12.3 (test code = 754) NUCLEATED RED BLOOD CELLS 0 /100 WBC 0-0 (AKER) (test code = 413) POCT-GLUCOSE [id number] 23:14:00 Test Item Value Reference Range Interpretation Comments POC-GLUCOSE METER 125 mg/dL 70-110 H TESTED AT [place] [address] ([facility]) (test code = CHERRI Zavaleta [facility] 1538) [address] POCT-GLUCOSE [id number] 16:53:00 Test Item Value Reference Range Interpretation Comments POC-GLUCOSE METER 174 mg/dL 70-110 H TESTED AT [place] [address] ([facility]) (test code = [facility] [place] Meghann [facility] 1538) [address] POCT-GLUCOSE [id number] 12:19:00 Test Item Value Reference Range Interpretation Comments POC-GLUCOSE METER 118 mg/dL 70-110 H TESTED AT [place] [address] ([facility]) (test code = [facility] [place] Meghann [facility] 1538) [address] POCT-GLUCOSE [id number] 09:10:00 Test Item Value Reference Range Interpretation Comments POC-GLUCOSE METER 125 mg/dL 70-110 H TESTED AT [place] [address] ([facility]) (test code = [facility] 1538) [id number] CBC (HEMOGRAM ONLY)2018-01-16 06:19:00 Test Item Value Reference Range Interpretation Comments WHITE BLOOD CELL COUNT (BEAKER) 4.6 K/ L 3.5-10.5 (test code = 775) RED BLOOD CELL COUNT (BEAKER) 3.56 M/ L 3.93-5.22 L (test code = 761) HEMOGLOBIN (BEAKER) (test code = 9.6 GM/DL 11.2-15.7 L 410) HEMATOCRIT (BEAKER) (test code = 30.5 % 34.1-44.9 L 411) MEAN CORPUSCULAR VOLUME (BEAKER) 85.7 fL 79.4-94.8 (test code = 753) MEAN CORPUSCULAR HEMOGLOBIN 27.0 pg 25.6-32.2 (BEAKER) (test code = 751) MEAN CORPUSCULAR HEMOGLOBIN CONC 31.5 GM/DL 32.2-35.5 L (BEAKER) (test code = 752) RED CELL DISTRIBUTION WIDTH 15.9 % 11.7-14.4 H (BEAKER) (test code = 412) PLATELET COUNT (BEAKER) (test 382 K/CU MM 150-450 code = 756) MEAN PLATELET VOLUME (BEAKER) 10.3 fL 9.4-12.3 (test code = 754) NUCLEATED RED BLOOD CELLS 0 /100 WBC 0-0 (BEAKER) (test code = 413) [id number] 06:11:00 Test Item Value Reference Range Interpretation Comments PHOSPHORUS (BEAKER) (test code = 3.7 mg/dL 2.3-4.7 604) [id number] 06:11:00 Test Item Value Reference Range Interpretation Comments MAGNESIUM (BEAKER) (test code = 1.8 mg/dL 1.6-2.6 627) BASIC METABOLIC [id number] 06:11:00 Test Item Value Reference Range Interpretation Comments SODIUM (BEAKER) 135 meq/L 136-145 L (test code = 381) POTASSIUM (BEAKER) 3.8 meq/L 3.5-5.1 (test code = 379) CHLORIDE (BEAKER) 102 meq/L 98-107 (test code = 382) CO2 (BEAKER) (test 25 meq/L 22-29 code = 355) BLOOD UREA NITROGEN 6 mg/dL 7-21 L (BEAKER) (test code = 354) CREATININE (BEAKER) 0.59 mg/dL 0.57-1.25 (test code = 358) GLUCOSE RANDOM 99 mg/dL 70-105 (BEAKER) (test code = 652) CALCIUM (BEAKER) 8.3 mg/dL 8.4-10.2 L (test code = 697) EGFR (BEAKER) (test 105 mL/min/1.73 ESTIM ATED GFR IS code = 1092) sq m NOT ACCURATE CREATININE CLEARANCE IN PREDICTING GLOMERULAR FILTRATION RATE . ESTIMATED GFR I S NOT APPLICABLE FOR DIALYSIS PATIEN TS. POCT-GLUCOSE [id number] 21:29:00 Test Item Value Reference Range Interpretation Comments POC-GLUCOSE METER 122 mg/dL 70-110 H TESTED AT [facility] 67[address] (BEAKER) (test code = [place] 1538) [address] POCT-GLUCOSE [id number] 18:05:00 Test Item Value Reference Range Interpretation Comments POC-GLUCOSE METER 114 mg/dL 70-110 H TESTED AT [facility] 6720 (BEAKER) (test code = CHERRI Zavaleta [place] 1538) [address] POCT-GLUCOSE [id number] 13:00:00 Test Item Value Reference Range Interpretation Comments POC-GLUCOSE METER 120 mg/dL 70-110 H TESTED AT [facility] 6720 (BEAKER) (test code = CHERRI Zavaleta [place] 1538) [address] POCT-GLUCOSE [id number] 09:22:00 Test Item Value Reference Range Interpretation Comments POC-GLUCOSE METER 127 mg/dL 70-110 H TESTED AT [facility] 6720 (BEAKER) (test code = CHERRI Zavaleta [facility] 1538) [address] [id number] 07:04:00 Test Item Value Reference Range Interpretation Comments PHOSPHORUS (BEAKER) (test code = 4.4 mg/dL 2.3-4.7 604) [id number] 07:04:00 Test Item Value Reference Range Interpretation Comments MAGNESIUM (BEAKER) (test code = 1.9 mg/dL 1.6-2.6 627) BASIC METABOLIC [id number] 07:04:00 Test Item Value Reference Range Interpretation Comments SODIUM (BEAKER) 133 meq/L 136-145 L (test code = 381) POTASSIUM (BEAKER) 4.2 meq/L 3.5-5.1 (test code = 379) CHLORIDE (BEAKER) 100 meq/L 98-107 (test code = 382) CO2 (BEAKER) (test 25 meq/L 22-29 code = 355) BLOOD UREA NITROGEN 6 mg/dL 7-21 L (BEAKER) (test code = 354) CREATININE (BEAKER) 0.68 mg/dL 0.57-1.25 (test code = 358) GLUCOSE RANDOM 97 mg/dL 70-105 (BEAKER) (test code = 652) CALCIUM (BEAKER) 8.6 mg/dL 8.4-10.2 (test code = 697) EGFR (BEAKER) (test 89 mL/min/1.73 ESTIMA PATTIE GFR IS code = 1092) sq m NOT ACCURATE CREATININE CLEARANCE IN PREDICTING GLOMERULAR FILTRATION RATE . ESTIMATED GFR I S NOT APPLICABLE FOR DIALYSIS PATIEN TS. CBC (HEMOGRAM ONLY)2018-01-15 06:42:00 Test Item Value Reference Range Interpretation Comments WHITE BLOOD CELL COUNT (BEAKER) 6.9 K/ L 3.5-10.5 (test code = 775) RED BLOOD CELL COUNT (BEAKER) 3.77 M/ L 3.93-5.22 L (test code = 761) HEMOGLOBIN (BEAKER) (test code = 10.4 GM/DL 11.2-15.7 L 410) HEMATOCRIT (BEAKER) (test code = 32.3 % 34.1-44.9 L 411) MEAN CORPUSCULAR VOLUME (BEAKER) 85.7 fL 79.4-94.8 (test code = 753) MEAN CORPUSCULAR HEMOGLOBIN 27.6 pg 25.6-32.2 (BEAKER) (test code = 751) MEAN CORPUSCULAR HEMOGLOBIN CONC 32.2 GM/DL 32.2-35.5 (BEAKER) (test code = 752) RED CELL DISTRIBUTION WIDTH 15.9 % 11.7-14.4 H (BEAKER) (test code = 412) PLATELET COUNT (BEAKER) (test 387 K/CU MM 150-450 code = 756) MEAN PLATELET VOLUME (BEAKER) 10.5 fL 9.4-12.3 (test code = 754) NUCLEATED RED BLOOD CELLS 0 /100 WBC 0-0 (BEAKER) (test code = 413) POCT-GLUCOSE [id number] 21:28:00 Test Item Value Reference Range Interpretation Comments POC-GLUCOSE METER 129 mg/dL 70-110 H TESTED AT [place] [address] ([facility]) (test code = CHERRI AL[place]CON 1538) [id number] POCT-GLUCOSE [id number] 17:14:00 Test Item Value Reference Range Interpretation Comments POC-GLUCOSE METER 125 mg/dL 70-110 H TESTED AT [place] [address] ([facility]) (test code = [place] 1538) [address] POCT-GLUCOSE [id number] 11:46:00 Test Item Value Reference Range Interpretation Comments POC-GLUCOSE METER 136 mg/dL 70-110 H TESTED AT [place] [address] ([facility]) (test code = CHERRI [place] 1538) [address] POCT-GLUCOSE [id number] 09:38:00 Test Item Value Reference Range Interpretation Comments POC-GLUCOSE METER 98 mg/dL 70-110 TESTED AT [facility] 6720 (BEAKER) (test code = [place] [address]) [id number] 06:28:00 Test Item Value Reference Range Interpretation Comments PHOSPHORUS (BEAKER) (test code = 3.9 mg/dL 2.3-4.7 604) [id number] 06:28:00 Test Item Value Reference Range Interpretation Comments MAGNESIUM (BEAKER) (test code = 1.6 mg/dL 1.6-2.6 627) BASIC METABOLIC [id number] 06:28:00 Test Item Value Reference Range Interpretation Comments SODIUM (BEAKER) 135 meq/L 136-145 L (test code = 381) POTASSIUM (BEAKER) 4.0 meq/L 3.5-5.1 (test code = 379) CHLORIDE (BEAKER) 103 meq/L 98-107 (test code = 382) CO2 (BEAKER) (test 26 meq/L 22-29 code = 355) BLOOD UREA NITROGEN 4 mg/dL 7-21 L (BEAKER) (test code = 354) CREATININE (BEAKER) 0.54 mg/dL 0.57-1.25 L (test code = 358) GLUCOSE RANDOM 104 mg/dL 70-105 (BEAKER) (test code = 652) CALCIUM (BEAKER) 8.4 mg/dL 8.4-10.2 (test code = 697) EGFR (BEAKER) (test 116 mL/min/1.73 ESTIM ATED GFR IS code = 1092) sq m NOT ACCURATE CREATININE CLEARANCE IN PREDICTING GLOMERULAR FILTRATION RATE . ESTIMATED GFR I S NOT APPLICABLE FOR DIALYSIS PATIEN TS. CBC (HEMOGRAM ONLY)2018-01-14 05:50:00 Test Item Value Reference Range Interpretation Comments WHITE BLOOD CELL COUNT (BEAKER) 6.4 K/ L 3.5-10.5 (test code = 775) RED BLOOD CELL COUNT (BEAKER) 3.51 M/ L 3.93-5.22 L (test code = 761) HEMOGLOBIN (BEAKER) (test code = 9.5 GM/DL 11.2-15.7 L 410) HEMATOCRIT (BEAKER) (test code = 29.6 % 34.1-44.9 L 411) MEAN CORPUSCULAR VOLUME (BEAKER) 84.3 fL 79.4-94.8 (test code = 753) MEAN CORPUSCULAR HEMOGLOBIN 27.1 pg 25.6-32.2 (BEAKER) (test code = 751) MEAN CORPUSCULAR HEMOGLOBIN CONC 32.1 GM/DL 32.2-35.5 L (BEAKER) (test code = 752) RED CELL DISTRIBUTION WIDTH 15.9 % 11.7-14.4 H (BEAKER) (test code = 412) PLATELET COUNT (BEAKER) (test 337 K/CU MM 150-450 code = 756) MEAN PLATELET VOLUME (BEAKER) 10.0 fL 9.4-12.3 (test code = 754) NUCLEATED RED BLOOD CELLS 0 /100 WBC 0-0 (BEAKER) (test code = 413) RAD, ABDOMEN/KUB, 1 VIEW [id number] 22:41:00Reason for exam:->Bowel obstructionFINAL REPORT Abdomen one view Comparison: Abdominal radiograph 01/11/2018. Reason for exam: Bowel obstruction Findings/impression: Supine view of the abdomen demonstrates retained oral contrast within the colon and rectum. There are no dilated bowel loops to suggest obstruction.There are left para midline surgical candice. Surgical clips overlie the left upper quadrant and left midabdomen. Signed: Jose Armando Erazo Verified Date/Time: 01/13/2018 22:41:41 Reading Location: [address] Reading Room POCT-GLUCOSE [id number] 22:13:00 Test Item Value Reference Range Interpretation Comments POC-GLUCOSE METER 157 mg/dL 70-110 H TESTED AT [facility] 67[address] ([facility]) (test code = [place] 1538) [id number] POCT-GLUCOSE [id number] 15:55:00 Test Item Value Reference Range Interpretation Comments POC-GLUCOSE METER 107 mg/dL 70-110 TESTED AT [facility] 6720 ([facility]) (test code = CHERRI Zavaleta [place] 1538) [id number] POCT-GLUCOSE [id number] 13:31:00 Test Item Value Reference Range Interpretation Comments POC-GLUCOSE METER 134 mg/dL 70-110 H TESTED AT [facility] 6720 (BEAKER) (test code = [place] 1538) [id number] 06:22:00 Test Item Value Reference Range Interpretation Comments PHOSPHORUS (BEAKER) (test code = 4.1 mg/dL 2.3-4.7 604) [id number] 06:22:00 Test Item Value Reference Range Interpretation Comments MAGNESIUM (BEAKER) (test code = 1.8 mg/dL 1.6-2.6 627) BASIC METABOLIC [id number] 06:22:00 Test Item Value Reference Range Interpretation Comments SODIUM (BEAKER) 136 meq/L 136-145 (test code = 381) POTASSIUM (BEAKER) 3.6 meq/L 3.5-5.1 (test code = 379) CHLORIDE (BEAKER) 103 meq/L 98-107 (test code = 382) CO2 (BEAKER) (test 25 meq/L 22-29 code = 355) BLOOD UREA NITROGEN 4 mg/dL 7-21 L (BEAKER) (test code = 354) CREATININE (BEAKER) 0.53 mg/dL 0.57-1.25 L (test code = 358) GLUCOSE RANDOM 94 mg/dL 70-105 (BEAKER) (test code = 652) CALCIUM (BEAKER) 8.7 mg/dL 8.4-10.2 (test code = 697) EGFR (BEAKER) (test 119 mL/min/1.73 ESTIM ATED GFR IS code = 1092) sq m NOT ACCURATE CREATININE CLEARANCE IN PREDICTING GLOMERULAR FILTRATION RATE . ESTIMATED GFR I S NOT APPLICABLE FOR DIALYSIS PATIEN TS. CBC (HEMOGRAM ONLY)2018-01-13 05:45:00 Test Item Value Reference Range Interpretation Comments WHITE BLOOD CELL COUNT (BEAKER) 5.3 K/ L 3.5-10.5 (test code = 775) RED BLOOD CELL COUNT (BEAKER) 3.82 M/ L 3.93-5.22 L (test code = 761) HEMOGLOBIN (BEAKER) (test code = 10.5 GM/DL 11.2-15.7 L 410) HEMATOCRIT (BEAKER) (test code = 33.0 % 34.1-44.9 L 411) MEAN CORPUSCULAR VOLUME (BEAKER) 86.4 fL 79.4-94.8 (test code = 753) MEAN CORPUSCULAR HEMOGLOBIN 27.5 pg 25.6-32.2 (AKER) (test code = 751) MEAN CORPUSCULAR HEMOGLOBIN CONC 31.8 GM/DL 32.2-35.5 L (AKER) (test code = 752) RED CELL DISTRIBUTION WIDTH 16.0 % 11.7-14.4 H ([facility]) (test code = 412) PLATELET COUNT ([facility]) (test 322 K/CU MM 150-450 code = 756) MEAN PLATELET VOLUME ([facility]) 10.4 fL 9.4-12.3 (test code = 754) NUCLEATED RED BLOOD CELLS 0 /100 WBC 0-0 ([facility]) (test code = 413) POCT-GLUCOSE [id number] 05:31:00 Test Item Value Reference Range Interpretation Comments POC-GLUCOSE METER 109 mg/dL 70-110 TESTED AT [place] [address] ([facility]) (test code = CHERRI Zavaleta [facility] 1538) [address] POCT-GLUCOSE [id number] 00:21:00 Test Item Value Reference Range Interpretation Comments POC-GLUCOSE METER 139 mg/dL 70-110 H TESTED AT [place] [address] ([facility]) (test code = [facility]ERRI Zavaleta [facility] 1538) [address] CT, [id number] 17:56:00FINAL REPORT INDICATION:57-year-old female with left upper quadrant pain status post recent repair of internal hernia. COMPARISON: Abdominal radiograph January 11, 2018 TECHNIQUE: CT of the Abdomen and Pelvis WITH intravenous contrast. Enteric contrast was used. The exam was performed according to our department dose- optimization protocol, which includes automated exposure control, adjustments of mA and kV according to patient size. Iterative reconstructions are also sometimes employed. FINDINGS:Patient is status post Marla-en-Y gastric bypass surgery. In the anterior left hemiabdomen there is a loop of air-filled dilated small bowel defined by two transition points (coronal images 48 and 50), suspicious for closed loop obstruction. This loop of small bowel is up against the left anterior abdominal wall and displaces the enteric limb rightward. Associated with the dilated small bowel is engorgement of the mesenteric veins and stranding of the mesentery. No hypoenhancing bowel wall is identified and no bowel wall thickening is demonstrated. No pneumatosis or portal venous gas. Laparotomy wound is noted with fat and small amount of fluid (seroma) protruding through the midline abdominal wall, may represent early dehiscence. In the right hepatic lobe there are two subcentimeter hypodense lesions which are too small to definitively characterize, though probably represent cysts. Liver is normal in size and contour and no suspicious liver lesion is demonstrated. Gallbladder is unremarkable. There is no biliary ductal dilatation. Pancreas and spleen are unremarkable. Kidneys enhance symmetrically and no suspicious renal lesion is demonstrated. No hydronephrosis. Adrenal glands unremarkable. Gallbladder is mildly distended and no bladder wall abnormality demonstrated. Uterus unremarkable. Small amount of pelvic free fluid noted. No pelvic or retroperitoneal lymphadenopathy.Partial imaging of the lower thorax demonstrates subsegmental atelectasis at the left base. No suspicious osseous lesion demonstrated. IMPRESSION: Prior Marla-en-Y gastric bypass surgery. Air filled dilated loop of small bowel in the anterior left hemiabdomen, suspicious for closed loop obstruction. Noevidence of bowel ischemia. Possible early dehiscence. Signed: Yoel Hernandez MDReport Verified Date/Time: 01/12/2018 17:56:23 Reading Location: [address] Ortho Consult Reading Room -GLUCOSE [id number] 13:18:00 Test Item Value Reference Range Interpretation Comments POC-GLUCOSE METER 94 mg/dL 70-110 TESTED AT [place] [address] ([facility]) (test code = CHERRI Meghann [facility] [address] 1538) POCT-GLUCOSE [id number] 09:00:00 Test Item Value Reference Range Interpretation Comments POC-GLUCOSE METER 120 mg/dL 70-110 H TESTED AT [place] [address] ([facility]) (test code = [facility] 1538) [id number] 06:26:00 Test Item Value Reference Range Interpretation Comments PHOSPHORUS (BEAKER) (test code = 4.2 mg/dL 2.3-4.7 604) [id number] 06:26:00 Test Item Value Reference Range Interpretation Comments [facility] (test code = 1.6 mg/dL 1.6-2.6 627) BASIC METABOLIC [id number] 06:26:00 Test Item Value Reference Range Interpretation Comments SODIUM (BEAKER) 134 meq/L 136-145 L (test code = 381) POTASSIUM (BEAKER) 4.1 meq/L 3.5-5.1 (test code = 379) CHLORIDE (BEAKER) 103 meq/L 98-107 (test code = 382) CO2 (BEAKER) (test 24 meq/L 22-29 code = 355) BLOOD UREA NITROGEN 4 mg/dL 7-21 L (BEAKER) (test code = 354) CREATININE (BEAKER) 0.54 mg/dL 0.57-1.25 L (test code = 358) GLUCOSE RANDOM 97 mg/dL 70-105 (BEAKER) (test code = 652) CALCIUM (BEAKER) 8.7 mg/dL 8.4-10.2 (test code = 697) EGFR (BEAKER) (test 116 mL/min/1.73 ESTIM ATED GFR IS code = 1092) sq m NOT ACCURATE CREATININE CLEARANCE IN PREDICTING GLOMERULAR FILTRATION RATE . ESTIMATED GFR I S NOT APPLICABLE FOR DIALYSIS PATIEN TS. CBC (HEMOGRAM ONLY)2018-01-12 05:43:00 Test Item Value Reference Range Interpretation Comments WHITE BLOOD CELL COUNT (BEAKER) 6.5 K/ L 3.5-10.5 (test code = 775) RED BLOOD CELL COUNT (BEAKER) 3.90 M/ L 3.93-5.22 L (test code = 761) HEMOGLOBIN (BEAKER) (test code = 10.7 GM/DL 11.2-15.7 L 410) HEMATOCRIT (BEAKER) (test code = 33.5 % 34.1-44.9 L 411) MEAN CORPUSCULAR VOLUME (BEAKER) 85.9 fL 79.4-94.8 (test code = 753) MEAN CORPUSCULAR HEMOGLOBIN 27.4 pg 25.6-32.2 (BEAKER) (test code = 751) MEAN CORPUSCULAR HEMOGLOBIN CONC 31.9 GM/DL 32.2-35.5 L (BEAKER) (test code = 752) RED CELL DISTRIBUTION WIDTH 16.1 % 11.7-14.4 H (BEAKER) (test code = 412) PLATELET COUNT (BEAKER) (test 303 K/CU MM 150-450 code = 756) MEAN PLATELET VOLUME ([facility]) 10.1 fL 9.4-12.3 (test code = 754) NUCLEATED RED BLOOD CELLS 0 /100 WBC 0-0 ([facility]) (test code = 413) POCT-GLUCOSE [id number] 21:55:00 Test Item Value Reference Range Interpretation Comments POC-GLUCOSE METER 107 mg/dL 70-110 TESTED AT [place] [address] ([facility]) (test code = CHERRI [place] 1538) [address] RAD, ABDOMEN/KUB, 1 VIEW [id number] 20:27:00Reason for exam:->nausea \T\ vomitingShould this be performed at the bedside?->YesFINAL REPORT CLINICAL HISTORY: Nausea, vomiting COMPARISON: None. FINDINGS: 4 views of the supine abdomen are submitted. There are loops of gas dilated small bowel in the upper mid/left abdomen. The remainder of the small bowel is relatively gasless. There is enteric contrast in decompressed colon to the level of the rectum. Surgical candice overlie the abdominal midline. There is no acute bony abnormality. Please note that a supine examination is insensitive in the detectionof free intraperitoneal air. IMPRESSION: Nonspecific dilated small bowel in the mid/left upper abdomen could reflect focal ileus or a small bowel obstruction. Please correlate with history. CT abdomen and pelvis can be performed, if indicated. Signed: Alexandro Zelaya MDReport Verified Date/Time: 01/11/2018 20:27:40 Reading Location: [address] Reading Room POCT- GLUCOSE [id number] 17:46:00 Test Item Value Reference Range Interpretation Comments POC-GLUCOSE METER 138 mg/dL 70-110 H TESTED AT [place] [address] ([facility]) (test code = CHERRI Zavaleta [place] 1538) [address] POCT-GLUCOSE [id number] 13:59:00 Test Item Value Reference Range Interpretation Comments POC-GLUCOSE METER 138 mg/dL 70-110 H TESTED AT [place] [address] ([facility]) (test code = CHERRI Zavaleta [facility] 1538) [address] [id number] 09:59:00 Test Item Value Reference Range Interpretation Comments PHOSPHORUS (BEAKER) (test code = 3.6 mg/dL 2.3-4.7 604) [id number] 09:59:00 Test Item Value Reference Range Interpretation Comments MAGNESIUM (BEAKER) (test code = 1.5 mg/dL 1.6-2.6 L 627) BASIC METABOLIC [id number] 09:59:00 Test Item Value Reference Range Interpretation Comments SODIUM (BEAKER) 133 meq/L 136-145 L (test code = 381) POTASSIUM (BEAKER) 4.1 meq/L 3.5-5.1 (test code = 379) CHLORIDE (BEAKER) 105 meq/L 98-107 (test code = 382) CO2 (BEAKER) (test 20 meq/L 22-29 L code = 355) BLOOD UREA NITROGEN 3 mg/dL 7-21 L (BEAKER) (test code = 354) CREATININE (BEAKER) 0.51 mg/dL 0.57-1.25 L (test code = 358) GLUCOSE RANDOM 117 mg/dL 70-105 H (BEAKER) (test code = 652) CALCIUM (BEAKER) 8.6 mg/dL 8.4-10.2 (test code = 697) EGFR (BEAKER) (test 124 mL/min/1.73 ESTIM ATED GFR IS code = 1092) sq m NOT ACCURATE CREATININE CLEARANCE IN PREDICTING GLOMERULAR FILTRATION RATE . ESTIMATED GFR I S NOT APPLICABLE FOR DIALYSIS PATIEN TS. CBC (HEMOGRAM ONLY)2018-01-11 09:38:00 Test Item Value Reference Range Interpretation Comments WHITE BLOOD CELL COUNT (BEAKER) 6.7 K/ L 3.5-10.5 (test code = 775) RED BLOOD CELL COUNT (BEAKER) 3.57 M/ L 3.93-5.22 L (test code = 761) HEMOGLOBIN (BEAKER) (test code = 9.7 GM/DL 11.2-15.7 L 410) HEMATOCRIT (BEAKER) (test code = 30.5 % 34.1-44.9 L 411) MEAN CORPUSCULAR VOLUME (BEAKER) 85.4 fL 79.4-94.8 (test code = 753) MEAN CORPUSCULAR HEMOGLOBIN 27.2 pg 25.6-32.2 (BEAKER) (test code = 751) MEAN CORPUSCULAR HEMOGLOBIN CONC 31.8 GM/DL 32.2-35.5 L ([facility]) (test code = 752) RED CELL DISTRIBUTION WIDTH 16.0 % 11.7-14.4 H ([facility]) (test code = 412) PLATELET COUNT ([facility]) (test 294 K/CU MM 150-450 code = 756) MEAN PLATELET VOLUME ([facility]) 10.2 fL 9.4-12.3 (test code = 754) NUCLEATED RED BLOOD CELLS 0 /100 WBC 0-0 ([facility]) (test code = 413) POCT-GLUCOSE [id number] 08:48:00 Test Item Value Reference Range Interpretation Comments POC-GLUCOSE METER 113 mg/dL 70-110 H TESTED AT [place] [address] ([facility]) (test code = CHERRI Zavaleta [facility] 1538) [id number] POCT-GLUCOSE [id number] 22:32:00 Test Item Value Reference Range Interpretation Comments POC-GLUCOSE METER 145 mg/dL 70-110 H TESTED AT [place] [address] ([facility]) (test [facility] = [facility] 1538) [address] POCT-GLUCOSE [id number] 18:11:00 Test Item Value Reference Range Interpretation Comments POC-GLUCOSE METER 158 mg/dL 70-110 H TESTED AT [place] [address] ([facility]) (test code = [facility] 1538) [id number] POCT-GLUCOSE [id number] 08:40:00 Test Item Value Reference Range Interpretation Comments POC-GLUCOSE METER 113 mg/dL 70-110 H TESTED AT [place] [address] ([facility]) (test code = BETSEYKIM Meghann [facility] 1538) [address] POCT-GLUCOSE [id number] 21:30:00 Test Item Value Reference Range Interpretation Comments POC-GLUCOSE METER 130 mg/dL 70-110 H TESTED AT [place] [address] ([facility]) (test code = [facility]E Meghann [facility] 1538) [address] POCT-GLUCOSE [id number] 16:37:00 Test Item Value Reference Range Interpretation Comments POC-GLUCOSE METER 126 mg/dL 70-110 H TESTED AT [place] [address] ([facility]) (test code = [facility] 1538) [address] POCT-GLUCOSE [id number] 12:30:00 Test Item Value Reference Range Interpretation Comments POC-GLUCOSE METER 124 mg/dL 70-110 H TESTED AT [facility] 6720 (BEAKER) (test code = CHERRI Zavaleta [place] 1538) [address] POCT-GLUCOSE [id number] 08:18:00 Test Item Value Reference Range Interpretation Comments POC-GLUCOSE METER 144 mg/dL 70-110 H TESTED AT [facility] 6720 (BEAKER) (test code = CHERRI Zavaleta [facility] 1538) [address] [id number] 06:36:00 Test Item Value Reference Range Interpretation Comments PHOSPHORUS (BEAKER) (test code = 3.0 mg/dL 2.3-4.7 604) [id number] 06:36:00 Test Item Value Reference Range Interpretation Comments MAGNESIUM (BEAKER) (test code = 2.0 mg/dL 1.6-2.6 627) BASIC METABOLIC [id number] 06:36:00 Test Item Value Reference Range Interpretation Comments SODIUM (BEAKER) 134 meq/L 136-145 L (test code = 381) POTASSIUM (BEAKER) 3.7 meq/L 3.5-5.1 (test code = 379) CHLORIDE (BEAKER) 110 meq/L 98-107 H (test code = 382) CO2 (BEAKER) (test 16 meq/L 22-29 L code = 355) BLOOD UREA NITROGEN 4 mg/dL 7-21 L (BEAKER) (test code = 354) CREATININE (BEAKER) 0.46 mg/dL 0.57-1.25 L (test code = 358) GLUCOSE RANDOM 98 mg/dL 70-105 (BEAKER) (test code = 652) CALCIUM (BEAKER) 8.1 mg/dL 8.4-10.2 L (test code = 697) EGFR (BEAKER) (test 140 mL/min/1.73 ESTIM ATED GFR IS code = 1092) sq m NOT ACCURATE CREATININE CLEARANCE IN PREDICTING GLOMERULAR FILTRATION RATE . ESTIMATED GFR I S NOT APPLICABLE FOR DIALYSIS PATIEN TS. CBC W/PLT COUNT & AUTO [id number] 06:06:00 Test Item Value Reference Range Interpretation Comments WHITE BLOOD CELL COUNT (BEAKER) 7.2 K/ L 3.5-10.5 (test code = 775) RED BLOOD CELL COUNT (BEAKER) 3.70 M/ L 3.93-5.22 L (test code = 761) HEMOGLOBIN (BEAKER) (test code = 10.0 GM/DL 11.2-15.7 L 410) HEMATOCRIT (BEAKER) (test code = 32.8 % 34.1-44.9 L 411) MEAN CORPUSCULAR VOLUME (BEAKER) 88.6 fL 79.4-94.8 (test code = 753) MEAN CORPUSCULAR HEMOGLOBIN 27.0 pg 25.6-32.2 (BEAKER) (test code = 751) MEAN CORPUSCULAR HEMOGLOBIN CONC 30.5 GM/DL 32.2-35.5 L (BEAKER) (test code = 752) RED CELL DISTRIBUTION WIDTH 16.1 % 11.7-14.4 H (BEAKER) (test code = 412) PLATELET COUNT (BEAKER) (test 217 K/CU MM 150-450 code = 756) MEAN PLATELET VOLUME (BEAKER) 10.7 fL 9.4-12.3 (test code = 754) NUCLEATED RED BLOOD CELLS 0 /100 WBC 0-0 (BEAKER) (test code = 413) NEUTROPHILS RELATIVE PERCENT 57 % (BEAKER) (test code = 429) LYMPHOCYTES RELATIVE PERCENT 26 % (BEAKER) (test code = 430) MONOCYTES RELATIVE PERCENT 11 % (BEAKER) (test code = 431) EOSINOPHILS RELATIVE PERCENT 5 % (BEAKER) (test code = 432) BASOPHILS RELATIVE PERCENT 0 % (BEAKER) (test code = 437) NEUTROPHILS ABSOLUTE COUNT 4.10 K/ L 1.56-6.13 (BEAKER) (test code = 670) LYMPHOCYTES ABSOLUTE COUNT 1.85 K/ L 1.18-3.74 (BEAKER) (test code = 414) MONOCYTES ABSOLUTE COUNT (BEAKER) 0.78 K/ L 0.24-0.36 H (test code = 415) EOSINOPHILS ABSOLUTE COUNT 0.35 K/ L 0.04-0.36 (BEAKER) (test code = 416) BASOPHILS ABSOLUTE COUNT (BEAKER) 0.03 K/ L 0.01-0.08 (test code = 417) IMMATURE GRANULOCYTES-RELATIVE 1 % 0-1 PERCENT (BEAKER) (test code = 2801) POCT-GLUCOSE [id number] 21:34:00 Test Item Value Reference Range Interpretation Comments POC-GLUCOSE METER 142 mg/dL 70-110 H TESTED AT [facility] 6720 (BEAKER) (test code = CHERRI Zavaleta [place] 1538) [id number] POCT-GLUCOSE [id number] 16:43:00 Test Item Value Reference Range Interpretation Comments POC-GLUCOSE METER 130 mg/dL 70-110 H TESTED AT [facility] 6720 (BEAKER) (test code = CHERRI Zavaleta [place] 1538) [address] POCT-GLUCOSE [id number] 12:14:00 Test Item Value Reference Range Interpretation Comments POC-GLUCOSE METER 149 mg/dL 70-110 H TESTED AT [facility] 6720 (BEAKER) (test code = CHERRI Zavaleta [place] 1538) [address] [id number] 08:51:00 Test Item Value Reference Range Interpretation Comments PHOSPHORUS (BEAKER) (test code = 2.1 mg/dL 2.3-4.7 L 604) [id number] 08:51:00 Test Item Value Reference Range Interpretation Comments MAGNESIUM (BEAKER) (test code = 1.6 mg/dL 1.6-2.6 627) BASIC METABOLIC [id number] 08:51:00 Test Item Value Reference Range Interpretation Comments SODIUM (BEAKER) 137 meq/L 136-145 (test code = 381) POTASSIUM (BEAKER) 3.4 meq/L 3.5-5.1 L (test code = 379) CHLORIDE (BEAKER) 108 meq/L 98-107 H (test code = 382) CO2 (BEAKER) (test 19 meq/L 22-29 L code = 355) BLOOD UREA NITROGEN 8 mg/dL 7-21 (BEAKER) (test code = 354) CREATININE (BEAKER) 0.62 mg/dL 0.57-1.25 (test code = 358) GLUCOSE RANDOM 110 mg/dL 70-105 H (BEAKER) (test code = 652) CALCIUM (BEAKER) 8.5 mg/dL 8.4-10.2 (test code = 697) EGFR (BEAKER) (test 99 mL/min/1.73 ESTIMA PATTIE GFR IS code = 1092) sq m NOT ACCURATE CREATININE CLEARANCE IN PREDICTING GLOMERULAR FILTRATION RATE . ESTIMATED GFR I S NOT APPLICABLE FOR DIALYSIS PATIEN TS. POCT-GLUCOSE [id number] 08:11:00 Test Item Value Reference Range Interpretation Comments POC-GLUCOSE METER 126 mg/dL 70-110 H TESTED AT [facility] 6720 (BEAKER) (test code = CHERRI [place] 1538) [id number] CBC W/PLT COUNT & AUTO [id number] 05:41:00 Test Item Value Reference Range Interpretation Comments WHITE BLOOD CELL COUNT (BEAKER) 8.2 K/ L 3.5-10.5 (test code = 775) RED BLOOD CELL COUNT (BEAKER) 4.20 M/ L 3.93-5.22 (test code = 761) HEMOGLOBIN (BEAKER) (test code = 11.5 GM/DL 11.2-15.7 410) HEMATOCRIT (BEAKER) (test code = 36.6 % 34.1-44.9 411) MEAN CORPUSCULAR VOLUME (BEAKER) 87.1 fL 79.4-94.8 (test code = 753) MEAN CORPUSCULAR HEMOGLOBIN 27.4 pg 25.6-32.2 (BEAKER) (test code = 751) MEAN CORPUSCULAR HEMOGLOBIN CONC 31.4 GM/DL 32.2-35.5 L (BEAKER) (test code = 752) RED CELL DISTRIBUTION WIDTH 16.1 % 11.7-14.4 H (BEAKER) (test code = 412) PLATELET COUNT (BEAKER) (test 286 K/CU MM 150-450 code = 756) MEAN PLATELET VOLUME (BEAKER) 10.4 fL 9.4-12.3 (test code = 754) NUCLEATED RED BLOOD CELLS 0 /100 WBC 0-0 (BEAKER) (test code = 413) NEUTROPHILS RELATIVE PERCENT 66 % (BEAKER) (test code = 429) LYMPHOCYTES RELATIVE PERCENT 22 % (BEAKER) (test code = 430) MONOCYTES RELATIVE PERCENT 9 % (BEAKER) (test code = 431) EOSINOPHILS RELATIVE PERCENT 3 % (BEAKER) (test code = 432) BASOPHILS RELATIVE PERCENT 1 % (BEAKER) (test code = 437) NEUTROPHILS ABSOLUTE COUNT 5.37 K/ L 1.56-6.13 (BEAKER) (test code = 670) LYMPHOCYTES ABSOLUTE COUNT 1.77 K/ L 1.18-3.74 (BEAKER) (test code = 414) MONOCYTES ABSOLUTE COUNT (BEAKER) 0.72 K/ L 0.24-0.36 H (test code = 415) EOSINOPHILS ABSOLUTE COUNT 0.22 K/ L 0.04-0.36 (BEAKER) (test code = 416) BASOPHILS ABSOLUTE COUNT (BEAKER) 0.04 K/ L 0.01-0.08 (test code = 417) IMMATURE GRANULOCYTES-RELATIVE 1 % 0-1 PERCENT (BEAKER) (test code = 2801) POCT-GLUCOSE [id number] 22:51:00 Test Item Value Reference Range Interpretation Comments POC-GLUCOSE METER 143 mg/dL 70-110 H TESTED AT [place] [address] ([facility]) (test code = [facility] 1538) [address] POCT-GLUCOSE [id number] 17:19:00 Test Item Value Reference Range Interpretation Comments POC-GLUCOSE METER 127 mg/dL 70-110 H TESTED AT [place] [address] ([facility]) (test code = [facility] 1538) [id number] POCT-GLUCOSE [id number] 11:16:00 Test Item Value Reference Range Interpretation Comments POC-GLUCOSE METER 128 mg/dL 70-110 H TESTED AT [place] [address] ([facility]) (test code = [facility] 1538) [address] CBC W/PLT COUNT & AUTO [id number] 07:43:00 Test Item Value Reference Range Interpretation Comments WHITE BLOOD CELL COUNT (BEAKER) 7.3 K/ L 3.5-10.5 (test code = 775) RED BLOOD CELL COUNT (BEAKER) 4.42 M/ L 3.93-5.22 (test code = 761) HEMOGLOBIN (BEAKER) (test code = 12.0 GM/DL 11.2-15.7 410) HEMATOCRIT (BEAKER) (test code = 38.8 % 34.1-44.9 411) MEAN CORPUSCULAR VOLUME (BEAKER) 87.8 fL 79.4-94.8 (test code = 753) MEAN CORPUSCULAR HEMOGLOBIN 27.1 pg 25.6-32.2 (BEAKER) (test code = 751) MEAN CORPUSCULAR HEMOGLOBIN CONC 30.9 GM/DL 32.2-35.5 L (BEAKER) (test code = 752) RED CELL DISTRIBUTION WIDTH 15.9 % 11.7-14.4 H (BEAKER) (test code = 412) PLATELET COUNT (BEAKER) (test 272 K/CU MM 150-450 code = 756) MEAN PLATELET VOLUME (BEAKER) 10.8 fL 9.4-12.3 (test code = 754) NUCLEATED RED BLOOD CELLS 0 /100 WBC 0-0 (BEAKER) (test code = 413) NEUTROPHILS RELATIVE PERCENT 84 % (BEAKER) (test code = 429) LYMPHOCYTES RELATIVE PERCENT 8 % (BEAKER) (test code = 430) MONOCYTES RELATIVE PERCENT 7 % (BEAKER) (test code = 431) EOSINOPHILS RELATIVE PERCENT 0 % (BEAKER) (test code = 432) BASOPHILS RELATIVE PERCENT 0 % (BEAKER) (test code = 437) NEUTROPHILS ABSOLUTE COUNT 6.05 K/ L 1.56-6.13 (BEAKER) (test code = 670) LYMPHOCYTES ABSOLUTE COUNT 0.61 K/ L 1.18-3.74 L (BEAKER) (test code = 414) MONOCYTES ABSOLUTE COUNT (BEAKER) 0.51 K/ L 0.24-0.36 H (test code = 415) EOSINOPHILS ABSOLUTE COUNT 0.01 K/ L 0.04-0.36 L (BEAKER) (test code = 416) BASOPHILS ABSOLUTE COUNT (BEAKER) 0.01 K/ L 0.01-0.08 (test code = 417) IMMATURE GRANULOCYTES-RELATIVE 1 % 0-1 PERCENT (BEAKER) (test code = 2801) [id number] 07:24:00 Test Item Value Reference Range Interpretation Comments PHOSPHORUS (BEAKER) (test code = 3.4 mg/dL 2.3-4.7 604) [id number] 07:24:00 Test Item Value Reference Range Interpretation Comments MAGNESIUM (BEAKER) (test code = 2.0 mg/dL 1.6-2.6 627) BASIC METABOLIC [id number] 07:24:00 Test Item Value Reference Range Interpretation Comments SODIUM (BEAKER) 139 meq/L 136-145 (test code = 381) POTASSIUM (BEAKER) 3.6 meq/L 3.5-5.1 (test code = 379) CHLORIDE (BEAKER) 107 meq/L 98-107 (test code = 382) CO2 (BEAKER) (test 20 meq/L 22-29 L code = 355) BLOOD UREA NITROGEN 11 mg/dL 7-21 ([facility]) (test code = 354) CREATININE ([facility]) 0.56 mg/dL 0.57-1.25 L (test code = 358) GLUCOSE RANDOM 137 mg/dL 70-105 H ([facility]) (test code = 652) CALCIUM ([facility]) 8.4 mg/dL 8.4-10.2 (test code = 697) EGFR ([facility]) (test 112 mL/min/1.73 ESTIM ATED GFR IS code = 1092) sq m NOT ACCURATE CREATININE CLEARANCE IN PREDICTING GLOMERULAR FILTRATION RATE . ESTIMATED GFR I S NOT APPLICABLE FOR DIALYSIS PATIEN TS. POCT-GLUCOSE [id number] 05:42:00 Test Item Value Reference Range Interpretation Comments POC-GLUCOSE METER 153 mg/dL 70-110 H TESTED AT [place] [address] ([facility]) (test code = [facility] 1538) [address] POCT-GLUCOSE [id number] 00:32:00 Test Item Value Reference Range Interpretation Comments POC-GLUCOSE METER 127 mg/dL 70-110 H TESTED AT [place] [address] ([facility]) (test code = [facility] 1538) [id number] POCT-GLUCOSE [id number] 18:25:00 Test Item Value Reference Range Interpretation Comments POC-GLUCOSE METER 113 mg/dL 70-110 H TESTED AT [place] [address] ([facility]) (test code = [facility] 1538) [address] POCT-GLUCOSE [id number] 13:08:00 Test Item Value Reference Range Interpretation Comments POC-GLUCOSE METER 130 mg/dL 70-110 H TESTED AT [place] [address] ([facility]) (test code = [facility] 1538) [address] [id number] 07:48:00 Test Item Value Reference Range Interpretation Comments PHOSPHORUS ([facility]) (test code = 2.9 mg/dL 2.3-4.7 604) [id number] 07:48:00 Test Item Value Reference Range Interpretation Comments MAGNESIUM ([facility]) (test code = 1.8 mg/dL 1.6-2.6 627) BASIC METABOLIC [id number] 07:48:00 Test Item Value Reference Range Interpretation Comments SODIUM (BEAKER) 137 meq/L 136-145 (test code = 381) POTASSIUM (BEAKER) 3.5 meq/L 3.5-5.1 (test code = 379) CHLORIDE (BEAKER) 104 meq/L 98-107 (test code = 382) CO2 (BEAKER) (test 20 meq/L 22-29 L code = 355) BLOOD UREA NITROGEN 15 mg/dL 7-21 (BEAKER) (test code = 354) CREATININE (BEAKER) 0.55 mg/dL 0.57-1.25 L (test code = 358) GLUCOSE RANDOM 94 mg/dL 70-105 (BEAKER) (test code = 652) CALCIUM (BEAKER) 9.0 mg/dL 8.4-10.2 (test code = 697) EGFR (BEAKER) (test 114 mL/min/1.73 ESTIM ATED GFR IS code = 1092) sq m NOT ACCURATE CREATININE CLEARANCE IN PREDICTING GLOMERULAR FILTRATION RATE . ESTIMATED GFR I S NOT APPLICABLE FOR DIALYSIS PATIEN TS. [id number] 07:00:00 Test Item Value Reference Range Interpretation Comments PARTIAL THROMBOPLASTIN TIME 32.8 seconds 22.5-36.0 (BEAKER) (test code = 760) PROTHROMBIN [id number] 06:59:00 Test Item Value Reference Range Interpretation Comments PROTIME (BEAKER) (test code = 15.6 seconds 11.7-14.7 H 759) INR (BEAKER) (test code = 370) 1.2 <=5.9 RECOMMENDED COUMADIN/WARFARIN INR THERAPY RANGESSTANDARD DOSE: 2.0 - 3.0 Includes: PROPHYLAXIS forvenous thrombosis, systemic embolization; TREATMENT for venous thrombosis and/or pulmonary embolus.HIGH RISK: Target INR is 2.5-3.5 for patients with mechanical heart valves.CBC (HEMOGRAM ONLY)[id number] 06:24:00 Test Item Value Reference Range Interpretation Comments WHITE BLOOD CELL COUNT (BEAKER) 5.2 K/ L 3.5-10.5 (test code = 775) RED BLOOD CELL COUNT (BEAKER) 4.41 M/ L 3.93-5.22 (test code = 761) HEMOGLOBIN (BEAKER) (test code = 12.1 GM/DL 11.2-15.7 410) HEMATOCRIT (BEAKER) (test code = 37.6 % 34.1-44.9 411) MEAN CORPUSCULAR VOLUME ([facility]) 85.3 fL 79.4-94.8 (test code = 753) MEAN CORPUSCULAR HEMOGLOBIN 27.4 pg 25.6-32.2 ([facility]) (test code = 751) MEAN CORPUSCULAR HEMOGLOBIN CONC 32.2 GM/DL 32.2-35.5 ([facility]) (test code = 752) RED CELL DISTRIBUTION WIDTH 15.7 % 11.7-14.4 H ([facility]) (test code = 412) PLATELET COUNT ([facility]) (test 254 K/CU MM 150-450 code = 756) MEAN PLATELET VOLUME ([facility]) 11.0 fL 9.4-12.3 (test code = 754) NUCLEATED RED BLOOD CELLS 0 /100 WBC 0-0 ([facility]) (test code = 413) POCT-GLUCOSE [id number] 05:02:00 Test Item Value Reference Range Interpretation Comments POC-GLUCOSE METER 92 mg/dL 70-110 TESTED AT [facility] [address] ([facility]) (test code = [place] [address] [id number])
[2020-09-13 20:45] LABS: Absolute Lymphocytes (CBC) 1.4 K/uL (0.7-4.9); Basophils % 0.6 % (0-1.3); Hematocrit 40.7 % (36.0-45.0); Lymphocytes % 14.9 % (15.3-44.8); MPV 8.9 fL (7.6-11.3); RBC Red Blood Cell Count 4.96 M/uL (3.86-4.86)
[2020-09-13] MEDS ORDERED: MORPHINE 4 MG/ML SYR ONE ×2 (20:57→23:34)
[2020-09-13] MEDS ORDERED: ONDANSETRON 4 MG/2 ML VIAL ONE (20:57)
[2020-09-13] MEDS ORDERED: NA CHLORIDE 0.9% 1,000 ML ONE (20:57)
[2020-09-13] MEDS ORDERED: FAMOTIDINE 20 MG/2 ML VIAL IV ONE (20:57)
[2020-09-13 21:02] LABS: ALT/SGPT 41 U/L (12-78); AST/SGOT 25 U/L (15-37); Albumin 3.4 g/dL (3.4-5.0); Alkaline Phosphatase 123 U/L (45-117); BUN Blood Urea Nitrogen 13 mg/dL (7-18); Bicarbonate 28 mmol/L (21-32); Bilirubin Direct 0.1 mg/dL (0-0.2); Bilirubin Total 0.6 mg/dL (0.2-1.0); Glucose Level 112 mg/dL (74-106); Lipase 82 U/L (73-393); Potassium 3.4 mmol/L (3.5-5.1); Protein, Total 7.4 g/dL (6.4-8.2); Sodium Level 136 mmol/L (136-145)
[2020-09-13 23:00] LABS: Urine Blood TRACE (NEG); Urine Glucose NEGATIVE (NEG); Urine Protein NEGATIVE (NEG)
--- NOTE | 2020-09-14 00:10 | ER ---
Nurse's Notes [facility] Name: Svetlana Orozco Age: 59 yrs Sex: Female : 1960 Arrival Date: 09/13/2020 Time: 18:19 Bed 19 Private MD: Diagnosis: Bowel Obstruction;Incarcerated Hernia Presentation: 09/13 18:57 Chief complaint: Abdominal pain and nausea x 2 days. Hx of bowel obstruction, reports hb pain is similar. Coronavirus screen: At this time, the client does not indicate any symptoms associated with coronavirus-19. Ebola Screen: No symptoms or risks identified at this time. Initial Sepsis Screen: Does the patient meet any 2 criteria? No. Patient's initial sepsis screen is negative. Does the patient have a suspected source of infection? No. Patient's initial sepsis screen is negative. Risk Assessment: Do you want to hurt yourself or someone else? Patient reports no desire to harm self or others. Onset of symptoms was September 12, 2020. 18:57 Method Of Arrival: Ambulatory hb 18:57 Acuity: BHARAT 3 hb Historical: - Allergies: 19:00 No Known Allergies; hb - Home Meds: 18:59 Detrol Oral [Active]; hb 19:00 lisinopril-hydrochlorothiazide 10-12.5 mg oral tab 1 tab once daily [Active]; B-12 DOTS hb 500 mcg oral tab [Active]; - PMHx: 18:59 Hypertension; hb - PSHx: 18:59 Gastric Bypass; hb - Immunization history:: Adult Immunizations up to date. - Social history:: Smoking status: Patient denies any tobacco usage or history of. Screenin:14 Abuse screen: Denies threats or abuse. Denies injuries from another. Nutritional lp1 screening: No deficits noted. Tuberculosis screening: No symptoms or risk factors identified. Fall Risk None identified. Assessment: 20:30 General: Appears in no apparent distress. Behavior is calm, cooperative, appropriate lp1 for age. Pain: Complains of pain in umbilical area Pain currently is 7 out of 10 on a pain scale. Quality of pain is described as crampy, Pain began 1 day ago. Is intermittent. Neuro: Level of Consciousness is awake, alert, obeys commands, Oriented to person, place, time, situation. Cardiovascular: Patient's skin is warm and dry. Rhythm is sinus rhythm. Respiratory: Respiratory effort is even, unlabored, Respiratory pattern is regular, Breath sounds are clear bilaterally. GI: Abdomen is obese, Bowel sounds present X 4 quads. Abdomen is tender to palpation in umbilical area Reports upper abdominal pain, cramping, nausea, Patient currently denies bloody stool, diarrhea. : No signs and/or symptoms were reported regarding the genitourinary system. EENT: No signs and/or symptoms were reported regarding the EENT system. Derm: Skin is pink, warm \T\ dry. Musculoskeletal: No deficits noted. 21:10 Reassessment: Patient is alert, oriented x 3, equal unlabored respirations, skin lp1 warm/dry/pink. Patient states pain relief at this time after administration of medications;. 21:47 Reassessment: Patient returned to CT via WC. lp1 22:46 Reassessment: Patient is alert, oriented x 3, equal unlabored respirations, skin lp1 warm/dry/pink. Patient reports abdominal cramping returning at this time;. 09/14 00:00 Reassessment: Patient appears in no apparent distress at this time. Patient and/or lp1 family updated on plan of care and expected duration. Pain level reassessed. Patient aware of plan for transfer, speaking with insurance company on phone. 01:06 Reassessment: Attempted NG tube insertion with 14FR and 12FR, unable to insert, both lp1 nostrils attempted; Provider notified, states okay. 01:24 Reassessment: Report called to ZOIE Valenzuela for patient transfer to [facility]. lp1 02:35 Reassessment: EMS at bedside for patient transfer to [facility]; Reports lp1 abdominal pain at this time, 03/26; Provider notified, verbal order for Morphine 4mg IV now. Vital Signs: 09/13 18:57 BP 168 / 91; Pulse 68; Resp 16; Temp 97.5; Pulse Ox 100% on R/A; Pain 7/10; hb 21:00 BP 149 / 80; Pulse 77; Resp 18; Pulse Ox 96% on R/A; Weight 145.15 kg (R); lp1 22:00 BP 132 / 78; Pulse 73; Resp 18; Pulse Ox 98% on R/A; lp1 22:45 BP 145 / 78; Pulse 73; Resp 18; Pulse Ox 99% on R/A; lp1 09/14 00:00 BP 148 / 80; Pulse 75; Resp 18; Pulse Ox 97% on R/A; lp1 01:00 BP 146 / 70; Pulse 78; Resp 18; Pulse Ox 98% on R/A; lp1 01:06 Temp 98.5(O); lp1 02:00 BP 129 / 60; Pulse 81; Resp 18; Pulse Ox 95% on R/A; lp1 02:30 BP 128 / 78; Pulse 81; Resp 18; Pulse Ox 95% on R/A; Pain 6/10; lp1 ED Course: 09/13 18:19 Patient arrived in ED. ds1 18:59 Triage completed. hb 19:00 Arm band placed on. hb 19:50 Keven Brito MD is Attending Physician. 7 20:01 Mildred Flowers, ZOIE is Primary Nurse. lp1 20:36 Inserted saline lock: 20 gauge in right antecubital area, using aseptic technique. dh4 Blood collected. 21:14 Patient has correct armband on for positive identification. Bed in low position. Call lp1 light in reach. Pulse ox on. NIBP on. 21:53 CT Abd/Pelvis - IV Contrast Only In Process Unspecified. EDMS 22:46 No provider procedures requiring assistance completed. lp1 09/14 02:56 Patient transferred, IV remains in place. lp1 Administered Medications: 09/13 20:53 Drug: NS 0.9% 1000 ml Route: IV; Rate: 1000 ml; Site: right antecubital; lp1 22:15 Follow up: IV Status: Completed infusion; IV Intake: 1000ml lp1 20:53 Drug: morphine 4 mg {Note: RASS 0.} Route: IVP; Site: right antecubital; lp1 21:12 Follow up: Response: Pain is decreased lp1 20:53 Drug: Zofran (Ondansetron) 4 mg Route: IVP; Site: right antecubital; lp1 21:12 Follow up: Response: No adverse reaction lp1 20:53 Drug: Pepcid 20 mg Route: IVP; Site: right antecubital; lp1 21:12 Follow up: Response: No adverse reaction lp1 23:25 Drug: morphine 4 mg {Note: RASS 0.} Route: IVP; Site: right antecubital; lp1 09/14 00:30 Follow up: Response: No adverse reaction; Marked relief of symptoms lp1 02:40 Drug: morphine 4 mg {Note: RASS 0.} Route: IVP; Site: right antecubital; lp1 02:57 Follow up: Response: Medication administered at discharge. lp1 Intake: 09/13 22:15 IV: 1000ml; Total: 1000ml. lp1 Outcome: 09/14 00:09 ER care complete, transfer ordered by . 7 02:56 Transferred by ground EMS to [facility], Transfer form completed. lp1 X-rays sent w/ patient. 02:56 Condition: stable 02:56 Instructed on the need for transfer. 02:57 Patient left the ED. sg Signatures: Dispatcher [employer] EDMS Steve Livingston RN RN Shelly Ramey ds1 Mildred Flowers RN RN [facility] Mare Alfaro RN RN Raz Levy formerly [facility] Keven Brito MD MD [facility] Corrections: (The following items were deleted from the chart) 09/13 21:12 21:00 BP 149 / 80; Pulse 77bpm; Resp 18bpm; Pulse Ox 96% RA; lp1 lp1
--- NOTE | 2020-09-14 00:10 | EDPHYS ---
Physician Documentation [facility] Name: Svetlana Orozco Age: 59 yrs Sex: Female : 1960 Arrival Date: 09/13/2020 Time: 18:19 Bed 19 Private MD: ED Physician Keven Brito HPI: 09/13 20:27 This 59 yrs old Female presents to ER via Ambulatory with complaints of mh7 Abdominal Pain, Nausea. 20:28 The patient presents with abdominal pain in the upper abdomen. Onset: The mh7 symptoms/episode began/occurred yesterday. The symptoms do not radiate. Associated signs and symptoms: Pertinent positives: nausea and vomiting, nausea, vomiting, Pertinent negatives: nausea, vomiting, and diarrhea, anorexia, blood in stools, chest pain, constipation, diarrhea, dysuria, fever, headache, hematuria, palpitations, shortness of breath, vaginal discharge, vomiting blood. The symptoms are described as intermittent, vague, waxing/waning. Modifying factors: The symptoms are alleviated by nothing, the symptoms are aggravated by nothing. Severity of pain: At its worst the pain was moderate last night, in the emergency department the pain has improved moderately. Historical: - Allergies: 19:00 No Known Allergies; hb - Home Meds: 18:59 Detrol Oral [Active]; hb 19:00 lisinopril-hydrochlorothiazide 10-12.5 mg oral tab 1 tab once daily [Active]; B-12 DOTS hb 500 mcg oral tab [Active]; - PMHx: 18:59 Hypertension; hb - PSHx: 18:59 Gastric Bypass; hb - Immunization history:: Adult Immunizations up to date. - Social history:: Smoking status: Patient denies any tobacco usage or history of. ROS: 20:28 Constitutional: Negative for fever, chills, and weight loss, Eyes: Negative for injury, mh7 pain, redness, and discharge, ENT: Negative for injury, pain, and discharge, Neck: Negative for injury, pain, and swelling, Cardiovascular: Negative for chest pain, palpitations, and edema, Respiratory: Negative for shortness of breath, cough, wheezing, and pleuritic chest pain, Back: Negative for injury and pain, : Negative for injury, bleeding, discharge, and swelling, MS/Extremity: Negative for injury and deformity, Skin: Negative for injury, rash, and discoloration, Neuro: Negative for headache, weakness, numbness, tingling, and seizure, Psych: Negative for depression, anxiety, suicide ideation, homicidal ideation, and hallucinations, Allergy/Immunology: Negative for hives, rash, and allergies, Endocrine: Negative for neck swelling, polydipsia, polyuria, polyphagia, and marked weight changes, Hematologic/Lymphatic: Negative for swollen nodes, abnormal bleeding, and unusual bruising. Exam: 20:28 Head/Face: Normocephalic, atraumatic. Eyes: Pupils equal round and reactive to light, mh7 extra-ocular motions intact. Lids and lashes normal. Conjunctiva and sclera are non-icteric and not injected. Cornea within normal limits. Periorbital areas with no swelling, redness, or edema. Neck: Trachea midline, no thyromegaly or masses palpated, and no cervical lymphadenopathy. Supple, full range of motion without nuchal rigidity, or vertebral point tenderness. No Meningismus. Chest/axilla: Normal chest wall appearance and motion. Nontender with no deformity. No lesions are appreciated. Cardiovascular: Regular rate and rhythm with a normal S1 and S2. No gallops, murmurs, or rubs. Normal PMI, no JVD. No pulse deficits. Respiratory: Lungs have equal breath sounds bilaterally, clear to auscultation and percussion. No rales, rhonchi or wheezes noted. No increased work of breathing, no retractions or nasal flaring. 20:28 Back: No spinal tenderness. No costovertebral tenderness. Full range of motion. Skin: Warm, dry with normal turgor. Normal color with no rashes, no lesions, and no evidence of cellulitis. MS/ Extremity: Pulses equal, no cyanosis. Neurovascular intact. Full, normal range of motion. Neuro: Awake and alert, GCS 15, oriented to person, place, time, and situation. Cranial nerves II-XII grossly intact. Motor strength 5/5 in all extremities. Sensory grossly intact. Cerebellar exam normal. Normal gait. Psych: Awake, alert, with orientation to person, place and time. Behavior, mood, and affect are within normal limits. 20:28 Constitutional: The patient appears in no acute distress, alert, awake, uncomfortable. 20:28 Abdomen/GI: Inspection: obese scar(s), are noted in the epigastric area, Bowel sounds: normal, in all quadrants, Palpation: moderate abdominal tenderness, in the epigastric area and umbilical area, Rectal exam: the exam is deferred, because of patient request, Indicators: McBurney's point is not tender, Erazo's sign is negative, Rovsing's sign is negative, Obturator sign is negative, Psoas sign is negative, Liver: no appreciated palpable abnormalities, Hernia: not appreciated. Vital Signs: 18:57 BP 168 / 91; Pulse 68; Resp 16; Temp 97.5; Pulse Ox 100% on R/A; Pain 7/10; hb 21:00 BP 149 / 80; Pulse 77; Resp 18; Pulse Ox 96% on R/A; Weight 145.15 kg (R); lp1 22:00 BP 132 / 78; Pulse 73; Resp 18; Pulse Ox 98% on R/A; lp1 22:45 BP 145 / 78; Pulse 73; Resp 18; Pulse Ox 99% on R/A; lp1 29 00:00 BP 148 / 80; Pulse 75; Resp 18; Pulse Ox 97% on R/A; lp1 01:00 BP 146 / 70; Pulse 78; Resp 18; Pulse Ox 98% on R/A; lp1 01:06 Temp 98.5(O); lp1 02:00 BP 129 / 60; Pulse 81; Resp 18; Pulse Ox 95% on R/A; lp1 02:30 BP 128 / 78; Pulse 81; Resp 18; Pulse Ox 95% on R/A; Pain 6/10; lp1 MDM: 00:05 Differential diagnosis: bowel obstruction, diverticulitis, gastritis, gastroesophageal mh7 reflux disease, non-specific abd pain, pancreatitis, Peptic Ulcer Disease, Pyelonephritis, Ureterolithiasis, urinary tract infection. Data reviewed: vital signs, nurses notes, lab test result(s), CBC, electrolytes, urinalysis, radiologic studies, CT scan. Data interpreted: Pulse oximetry: on room air is 99 %. Interpretation: normal. Counseling: I had a detailed discussion with the patient and/or guardian regarding: the historical points, exam findings, and any diagnostic results supporting the discharge/admit diagnosis, lab results, radiology results. Response to treatment: the patient's symptoms have markedly improved after treatment. Refusal of service: The patient/guardian displays adequate decision making capability and despite a detailed discussion of alternatives, benefits, risks, and consequences refuses: Admission to the hospital for further work-up and treatment, Patient requests transfer to [facility] in the [facility]. 00:09 Patient medically screened. [facility] 09/13 20:13 Order name: Basic Metabolic Panel; Complete Time: 21:36 [facility] 09/13 20:13 Order name: CBC with Diff; Complete Time: 21:36 [facility] 09/13 20:13 Order name: Hepatic Function; Complete Time: 21:36 [facility] 09/13 20:13 Order name: Lipase; Complete Time: 21:36 [facility] 09/13 21:31 Order name: CREATININE WHOLE BLOOD; Complete Time: 21:36 [facility] 09/13 22:42 Order name: Urine Dipstick--Ancillary (enter results); Complete Time: 23:15 3 09/13 20:13 Order name: CT Abd/Pelvis - IV Contrast Only [facility] 09/14 00:30 Order name: SARS-COV-2 RT PCR [facility] 09/13 20:13 Order name: IV Saline Lock; Complete Time: 20:37 [facility] 09/13 20:13 Order name: Labs collected and sent; Complete Time: 20:37 [facility] 09/13 20:13 Order name: EKG - Nurse/Tech; Complete Time: 21:11 [facility] Administered Medications: 09/13 20:53 Drug: NS 0.9% 1000 ml Route: IV; Rate: 1000 ml; Site: right antecubital; lp1 22:15 Follow up: IV Status: Completed infusion; IV Intake: 1000ml lp1 20:53 Drug: morphine 4 mg {Note: RASS 0.} Route: IVP; Site: right antecubital; lp1 21:12 Follow up: Response: Pain is decreased lp1 20:53 Drug: Zofran (Ondansetron) 4 mg Route: IVP; Site: right antecubital; lp1 21:12 Follow up: Response: No adverse reaction lp1 20:53 Drug: Pepcid 20 mg Route: IVP; Site: right antecubital; lp1 21:12 Follow up: Response: No adverse reaction lp1 23:25 Drug: morphine 4 mg {Note: RASS 0.} Route: IVP; Site: right antecubital; lp1 09/14 00:30 Follow up: Response: No adverse reaction; Marked relief of symptoms lp1 02:40 Drug: morphine 4 mg {Note: RASS 0.} Route: IVP; Site: right antecubital; lp1 02:57 Follow up: Response: Medication administered at discharge. lp1 Disposition: 09/14/20 00:09 Transfer ordered to [facility]. Diagnosis are Bowel Obstruction, Incarcerated Hernia. - Reason for transfer: Higher level of care. - Accepting physician is Dr. Aleman. - Condition is Stable. - Problem is new. - Symptoms have improved. Signatures: Dispatcher [employer] EDWY Steve Livingston RN RN sg Mildred Flowers RN RN 1 Mare Alfaro, ZOIE RN Keven Brito MD MD 7 Corrections: (The following items were deleted from the chart) 09/13 23:40 23:25 CORONAVIRUS+MR.LAB.BRZ ordered. [facility] 09/14 00:20 00:09 09/14/2020 00:09 Transfer ordered to [facility]. 7 Diagnosis is Bowel Obstruction; Incarcerated Hernia. Reason for transfer: Higher level of care. Accepting physician is Dr. Christopher. Condition is Stable. Problem is new. Symptoms have improved. [facility] 02:57 00:20 09/14/2020 00:09 Transfer ordered to [facility]. Diagnosis is Bowel Obstruction; Incarcerated Hernia. Reason for transfer: Higher level of care. Accepting physician is Dr. Aleman. Condition is Stable. Problem is new. Symptoms have improved. 7
[2020-09-14] MEDS ORDERED: MORPHINE 4 MG/ML SYR ONE (02:57)
[2020-09-14 05:27] VITALS: TEMP 98.5
[2020-09-14 05:29] VITALS: O2SAT 95
[2020-09-14 05:30] VITALS: BP 128/78
--- NOTE | 2020-09-15 10:34 | RAD REPORT ---
EXAM DESCRIPTION: CT - Abdomen Pelvis W Contrast - 09/13/2020 9:52 pm CLINICAL HISTORY: ABD PAIN COMPARISON: None Available TECHNIQUE: Contiguous axial images of the abdomen and pelvis were obtained followed by reconstructio n images. This exam was performed according to our departmental dose-optimization program, which incl udes automated exposure control, adjustment of the mA and/or kV according to patient size and/or use of iterative reconstruction technique. FINDINGS: Linear opacities within the lungs may represent scar versus subsegmental atelectasis. Taylor ent is status post gastric surgery. The liver is of decreased attenuation compatible with fatty infil tration. Calcifications within the pelvis compatible with phleboliths. There is an anterior abdominal wall hernia containing colonic components. There is dilatation of the colon up to the level of the hernia compatible with a bowel obstruction. The distal colon is decompre ssed. There are surgical clips at the ileocecal junction. Appendix was not visualized. There is a sma ll hepatic cyst. The liver, spleen, pancreas and kidneys are otherwise within normal limits. There is no hydronephrosi s or renal stones. The gallbladder is unremarkable by CT criteria. Adrenal glands are within normal l imits. Aorta is of normal caliber and tapering. There is no free fluid in the abdomen or pelvis. IMPRESSION: Anterior abdominal wall hernia with colonic components. There is dilatation of the proxi mal colon with caliber transition at the level of the hernia suspicious for an incarcerated hernia. Electronically signed by: Michael Ahumada MD 09/13/2020 10:03 PM [employer] Due to temporary technical issues with the PACS/Fluency reporting system, reports are being signed by the in house radiologist without review as a courtesy to ensure prompt reporting. The interpreting r adiologist is fully responsible for the content of the report.
== END 2020-09-14 02:57 | disposition short-term general hospital (02) ==
LOC: ER 18:17
DX: K56.609 Unspecified intestinal obstruction, unspecified as to partial versus complete obstruction (principal); K43.6 Other and unspecified ventral hernia with obstruction, without gangrene; I10 Essential (primary) hypertension; Z20.828 Contact with and (suspected) exposure to other viral communicable diseases; Z98.84 Bariatric surgery status
CPT/HCPCS: 96361; 93005; 85025; 80048; 36415; 82565; 80076; 81003; 83690; 74177; 96375; 96374; 99285; U0003; Q9967; J7030; J2405